=== PATIENT | female | born 1955 | race Caucasian/White ===

== ENCOUNTER → 2017-10-23 12:05 | Outpatient (CLI) | payer OTHER, SELFPAY ==
[2017-10-23 12:31] LABS: Absolute Lymphocyte Count 1.91 X10^3/ul (0.83-4.51); Absolute Neutrophil Count 3.4 X10^3/uL (2.0-7.7); Basophil# 0.04 X10^3/uL; Basophil% 0.7 % (0-1); Eosinophil# 0.14 X10^3/uL; Eosinophils% 2.3 % (0-5); Hematocrit 40.4 % (37-47); Hemoglobin 13.1 g/dl (12.0-15.0); Lymphocyte # 1.91 X10^3/ul (4.0); Lymphocyte % 31.4 % (19-41); Mean Corp Hgb Conc 32.4 g/gl (32-36); Mean Corpuscular Hgb 30.5 pg (27.0-32.0); Mean Corpuscular Volume 94.2 fL (81-99); Mean Platelet Vol. 11.5 fl (6.2-12.0); Monocyte# 0.56 X10^3/uL; Monocyte% 9.2 % (0-10); Neutrophil # 3.41 X10^3/uL (2.7-7.7); Neutrophil % 56.1 % (47-70); Platelet Count 191 K/mm3 (150-450); RBC Distribution Width CV 13.4 % (11.6-14.6); RBC Distribution Width SD 44.2 fl (35.1-43.9); Red Blood Count 4.29 M/mm3 (4.2-5.4); White Blood Count 6.1 K/mm3 (4.4-11.0)
[2017-10-23 12:37] LABS: POSITIVE COUNT NO; POSITIVE DIFFERENTIAL NO; POSITIVE MORPHOLOGY NO
[2017-10-23 12:52] LABS: AST(SGOT) 27 U/L (15-37); Alanine Aminotransfer ALT/SGPT 46 U/L (13-56); Albumin, Serum 3.7 g/dL (3.2-5.0); Alkaline Phosphatase 50 U/L (45-117); Anion Gap 10 (5-15); BUN 15 mg/dL (7-18); BUN/Creat Ratio 16.1 RATIO (10-20); Calcium,Total 8.8 mg/dL (8.5-10.1); Chloride 102 mmol/L (98-107); Creatinine, Serum 0.93 mg/dL (0.55-1.02); EST Glomerular Filtration Rate 65 mL/min (>60); Est Glom Filt Rate - Afr Amer 78 mL/min (>60); Globulin 3.7 g/dL (2.2-4.2); Glucose 94 mg/dL (74-106); Potassium 4.1 mmol/L (3.5-5.1); Protein, Total 7.4 g/dL (6.4-8.2); Sodium Level 139 mmol/L (136-145); Thyroid Stim Hormone (TSH) 5.79 uIU/mL (0.358-3.74)
== END ==
PROVIDERS: Family Provider Family Medicine Geriatric Medicine; Visit Provider Family Medicine Geriatric Medicine
DX: I10 Essential (primary) hypertension (principal)
CPT/HCPCS: 36415; 80053; 84443; 85025

== ENCOUNTER → 2018-02-09 11:08 | Outpatient (CLI) | payer OTHER, SELFPAY ==
[2018-02-09 15:03] LABS: Absolute Lymphocyte Count 1.29 X10^3/ul (0.83-4.51); Absolute Neutrophil Count 3.7 X10^3/uL (2.0-7.7); Basophil# 0.05 X10^3/uL; Basophil% 0.9 % (0-1); Eosinophil# 0.18 X10^3/uL; Eosinophils% 3.2 % (0-5); Hemoglobin 12.4 g/dl (12.0-15.0); Lymphocyte # 1.29 X10^3/ul (4.0); Lymphocyte % 23.2 % (19-41); Mean Corp Hgb Conc 31.8 g/gl (32-36); Mean Corpuscular Hgb 30.2 pg (27.0-32.0); Mean Corpuscular Volume 95.1 fL (81-99); Mean Platelet Vol. 10.6 fl (6.2-12.0); Monocyte% 7.2 % (0-10); Neutrophil # 3.65 X10^3/uL (2.7-7.7); Neutrophil % 65.5 % (47-70); Platelet Count 214 K/mm3 (150-450); RBC Distribution Width SD 45.2 fl (35.1-43.9); White Blood Count 5.6 K/mm3 (4.4-11.0)
[2018-02-09 15:07] LABS: POSITIVE COUNT NO; POSITIVE DIFFERENTIAL NO; POSITIVE MORPHOLOGY NO
[2018-02-09 15:26] LABS: Vitamin D,25 Hydroxy 20.9 ng/mL (29.95-100.01)
[2018-02-09 15:36] LABS: ALB/GLOB Ratio 1.1 RATIO (0.9-2.4); AST(SGOT) 29 U/L (15-37); Alanine Aminotransfer ALT/SGPT 48 U/L (13-56); Albumin, Serum 3.7 g/dL (3.2-5.0); Alkaline Phosphatase 54 U/L (45-117); Anion Gap 9 (5-15); BUN 19 mg/dL (7-18); BUN/Creat Ratio 18.4 RATIO (10-20); Calcium,Total 8.9 mg/dL (8.5-10.1); Chloride 106 mmol/L (98-107); Creatinine, Serum 1.03 mg/dL (0.55-1.02); EST Glomerular Filtration Rate 58 mL/min (>60); Est Glom Filt Rate - Afr Amer 70 mL/min (>60); Globulin 3.5 g/dL (2.2-4.2); Glucose 102 mg/dL (74-106); Protein, Total 7.2 g/dL (6.4-8.2); Sodium Level 139 mmol/L (136-145); T4 Free Direct 0.99 ng/dL (0.76-1.46); Thyroid Stim Hormone (TSH) 5.75 uIU/mL (0.358-3.74)
--- OUTSIDE RECORDS SUMMARY | 2018-05-14 00:27 | XMS RPT_ITS ---
:1955 Author Organization [place] Care Team Providers Name Role Phone Corine Kong Admitting Unavailable Corine Kong Attending Unavailable Corine Kong Admitting Unavailable Corine Kong Attending Unavailable CORINE KONG Attending Unavailable JD, [facility] Unavailable JD, [facility] Unavailable WAI GAMBLE Attending Unavailable JD, [facility] Unavailable NOE FERMIN Attending Unavailable JD, [facility] Unavailable CORINE KONG Attending Unavailable JD, [facility] Unavailable Jd, Orlando Chi Attending Unavailable Jd, [facility] Primary Care Unavailable Jd, Orlando Chi Attending Unavailable Jd, Orlando [facility] Primary Care Unavailable PROBLEMS PROBLEMS DATE TYPE CONDITION / CODE ATTENDING STATUS SOURCE 02/09/2018 Unknown E03.9 - Jd, [place] Chi Active [place] Hypothyroidism, [facility] unspecified / Hospital E03.9(ICD-10) Repository 01/29/2018 Admitting Other senior living [facility] diagnosis (current) drug LEATHAJennifer Metzger therapy / Repository Z79.899(ICD-10) 10/24/2017 Unknown I10 - Essential Jd, Orlando Chi Active [place] (primary) [facility] hypertension / Hospital I10(ICD-10) Repository 06/26/2017 Admitting Paroxysmal atrial NA [facility] diagnosis fibrillation / Three I48.0(ICD-10) Repository 10/17/2016 Admitting Essential GORENFLOCORINE [facility] diagnosis (primary) L. [place] hypertension / Repository I10(ICD-10) 06/18/2017 Admitting Unspecified atrial GORENFLOCORINE [facility] diagnosis fibrillation / L. Three I48.91(ICD-10) Repository PROCEDURES PROCEDURES No Procedure Records FoundRESULTS RESULTS CBC W/DIFF, AUTOMATED Collected: 02/09/2018 Status: F Source: [place] 12:19 PM [facility] REPOSITORY Order Comment: WAI GAMBLE ORDERED CMP TSH FT4 ONLY TYPE CODE TESTS RESULT OUT OF RANGE REFERENCE UNITS LAB L100.1000 4.4-11.0 K/mm3 Normal WBC 5.6 LAB L100.1200 4.2-5.4 M/mm3 Low RBC 4.10 LAB L100.1300 12.0-15.0 g/dl Normal HGB 12.4 LAB L100.1400 37-47 % Normal HCT 39.0 LAB L100.1500 81-99 fL Normal MCV 95.1 LAB L100.1600 27.0-32.0 pg Normal MCH 30.2 LAB L100.1700 32-36 g/gl Low MCHC 31.8 LAB L100.1810 11.6-14.6 % Normal RDW CV 13.0 LAB L100.1820 35.1-43.9 fl High RDW SD 45.2 LAB L100.1900 150-450 K/mm3 Normal PLT 214 LAB L100.2000 6.2-12.0 fl Normal MPV 10.6 LAB L100.2100 47-70 % Normal NEUT% 65.5 LAB L100.2200 19-41 % Normal LY% 23.2 LAB L100.2300 0-10 % Normal MONO% 7.2 LAB L100.2400 0-5 % Normal EO% 3.2 LAB L100.2500 0-1 % Normal BASO% 0.9 LAB L100.2550 0.0-0.9 % Normal IM GRAN % 0.000 Result Comment: IG% - Immature Granulocytes (promyelocytes, myelocytes and metamyelocytes) > 1% indicates that a LEFT SHIFT is Present. LAB L100.2620 2.0-7.7 X10 3/uL Normal Absolute Neut 3.7 LAB L100.2720 0.83-4.51 X10 3/ul Normal Absolute Lymph 1.29 Performed By: #### L100.0100 #### [facility] [address] [place], [place], [address] VITAMIN D,25 HYDROXY Collected: 02/09/2018 Status: F Source: [place] 12:[address] [facility] REPOSITORY Order Comment: WAI ZHANG COX BRANSON ORDERED CMP TSH FT4 ONLY TYPE CODE TESTS RESULT OUT OF REFERENCE UNITS RANGE LAB L506.1000 29.95-100.01 ng/mL Low Vitamin D 20.9 25-OH Result Comment: Vitamin D 25(OH) Status Range Deficiency <20 ng/mL (50nmol/L) Insuffciency 20 - 30 ng/mL (50 - 75 nmol/L) Sufficiency 30 - 100 ng/mL (75 - 250 nmol/L) Toxicity >100 ng/mL (>250 nmol/L) Performed By: #### L506.1000 #### [facility] [address] [place], [place], [address] COMPREHENSIVE METABOLIC Collected: 02/09/2018 Status: F Source: [facility] 12:[address] [facility] REPOSITORY Order Comment: WAI YEUNGE [facility] ORDERED CMP TSH FT4 ONLY TYPE CODE TESTS RESULT OUT OF RANGE REFERENCE UNITS LAB L501.0100 74-106 mg/dL Normal GLU 102 Result Comment: Fasting Glucose result from 100 to 125 mg/dL suggests IMPAIRED HOMEOSTASIS per A.D.A. criteria. Please note revised GLUCOSE reference range effective 2017. LAB L501.1000 7-18 mg/dL High BUN 19 LAB L501.1100 0.55-1.02 mg/dL High CREAT,SERUM 1.03 Result Comment: The validity of the calculated GFR AND GFRAA in patients over 70 years has not been determined. Clinical correlation is essential. LAB L501.1110 >60 mL/min Low EST GFR 58 Result Comment: Non- GFR Calc LAB L501.1115 >60 mL/min Normal EST GFR - AA 70 Result Comment: GFR Calc LAB L501.1300 10-20 RATIO Normal BUN/CRE 18.4 LAB L501.1500 6.4-8.2 g/dL T Normal PROT 7.2 LAB L501.1800 3.2-5.0 g/dL Normal ALB 3.7 LAB L501.1950 2.2-4.2 g/dL Normal GLOB 3.5 LAB L501.2000 0.9-2.4 RATIO Normal A/G 1.1 LAB L501.2200 8.5-10.1 mg/dL CA Normal 8.9 LAB L501.4100 15-37 U/L Normal AST 29 LAB L501.4305 45-117 U/L Normal ALK P 54 LAB L501.4405 13-56 U/L Normal ALT 48 LAB L501.4600 0.20-1.00 mg/dL T Normal BILI 0.40 LAB L501.5300 136-145 mmol/L NA Normal 139 LAB L501.5600 3.5-5.1 mmol/L K Normal 4.0 LAB L501.5900 98-107 mmol/L CL Normal 106 LAB L501.6100 21.0-32.0 mmol/L Normal CO2 24.0 LAB L501.6200 5-15 Normal GAP 9 Performed By: #### L500.4050, L501.9520, L506.0400 #### [facility] [address] [place], [address] THYROID STIM HORMONE Collected: 02/09/2018 Status: F Source: [place] (TSH) 12:[address] [facility] REPOSITORY Order Comment: WAI GAMBLE ORDERED CMP TSH FT4 ONLY TYPE CODE TESTS RESULT OUT OF RANGE REFERENCE UNITS LAB L501.9520 0.358-3.74 uIU/mL High TSH 5.75 Performed By: #### L500.4050, L501.9520, L506.0400 #### [facility] [address] [place], [place], [address] T4 FREE DIRECT Collected: 02/09/2018 Status: F Source: [place] 12:[address] [facility] REPOSITORY Order Comment: WAI GAMBLE ORDERED CMP TSH FT4 ONLY TYPE CODE TESTS RESULT OUT OF RANGE REFERENCE UNITS LAB L506.0400 0.76-1.46 ng/dL Normal T4 FREE 0.99 DIRECT Performed By: #### L500.4050, L501.9520, L506.0400 #### [facility] [address] [place], [place], [address] CBC W/DIFF, AUTOMATED Collected: 10/23/2017 Status: F Source: [place] 12:[address] [facility] REPOSITORY TYPE CODE TESTS RESULT OUT OF RANGE REFERENCE UNITS LAB L100.1000 4.4-11.0 K/mm3 Normal WBC 6.1 LAB L100.1200 4.2-5.4 M/mm3 Normal RBC 4.29 LAB L100.1300 12.0-15.0 g/dl Normal HGB 13.1 LAB L100.1400 37-47 % Normal HCT 40.4 LAB L100.1500 81-99 fL Normal MCV 94.2 LAB L100.1600 27.0-32.0 pg Normal MCH 30.5 LAB L100.1700 32-36 g/gl Normal MCHC 32.4 LAB L100.1810 11.6-14.6 % Normal RDW CV 13.4 LAB L100.1820 35.1-43.9 fl High RDW SD 44.2 LAB L100.1900 150-450 K/mm3 Normal PLT 191 LAB L100.2000 6.2-12.0 fl Normal MPV 11.5 LAB L100.2100 47-70 % Normal NEUT% 56.1 LAB L100.2200 19-41 % Normal LY% 31.4 LAB L100.2300 0-10 % Normal MONO% 9.2 LAB L100.2400 0-5 % Normal EO% 2.3 LAB L100.2500 0-1 % Normal BASO% 0.7 LAB L100.2550 0.0-0.9 % Normal IM GRAN % 0.300 Result Comment: IG% - Immature Granulocytes (promyelocytes, myelocytes and metamyelocytes) > 1% indicates that a LEFT SHIFT is Present. LAB L100.2620 2.0-7.7 X10 3/uL Normal Absolute Neut 3.4 LAB L100.2720 0.83-4.51 X10 3/ul Normal Absolute Lymph 1.91 Performed By: #### L100.0100 #### [facility] [address] [place], [place], [address] COMPREHENSIVE METABOLIC Collected: 10/23/2017 Status: F Source: [facility] 12:[address] [facility] REPOSITORY TYPE CODE TESTS RESULT OUT OF RANGE REFERENCE UNITS LAB L501.0100 74-106 mg/dL Normal GLU 94 Result Comment: Please note revised GLUCOSE reference range effective 2017. LAB L501.1000 7-18 mg/dL Normal BUN 15 LAB L501.1100 0.55-1.02 mg/dL Normal CREAT,SERUM 0.93 Result Comment: The validity of the calculated GFR AND GFRAA in patients over 70 years has not been determined. Clinical correlation is essential. LAB L501.1110 >60 mL/min Normal EST GFR 65 Result Comment: Non- GFR Calc LAB L501.1115 >60 mL/min Normal EST GFR - AA 78 Result Comment: GFR Calc LAB L501.1300 10-20 RATIO Normal BUN/CRE 16.1 LAB L501.1500 6.4-8.2 g/dL T Normal PROT 7.4 LAB L501.1800 3.2-5.0 g/dL Normal ALB 3.7 LAB L501.1950 2.2-4.2 g/dL Normal GLOB 3.7 LAB L501.2000 0.9-2.4 RATIO Normal A/G 1.0 LAB L501.2200 8.5-10.1 mg/dL CA Normal 8.8 LAB L501.4100 15-37 U/L Normal AST 27 LAB L501.4305 45-117 U/L Normal ALK P 50 LAB L501.4405 13-56 U/L Normal ALT 46 LAB L501.4600 0.20-1.00 mg/dL T Normal BILI 0.50 LAB L501.5300 136-145 mmol/L NA Normal 139 LAB L501.5600 3.5-5.1 mmol/L K Normal 4.1 LAB L501.5900 98-107 mmol/L CL Normal 102 LAB L501.6100 21.0-32.0 mmol/L Normal CO2 27.0 LAB L501.6200 5-15 Normal GAP 10 Performed By: #### L500.4050, L501.9520 #### [facility] [address] [place], [address] THYROID STIM HORMONE Collected: 10/23/2017 Status: F Source: [place] (TSH) 12:[address] [facility] REPOSITORY TYPE CODE TESTS RESULT OUT OF RANGE REFERENCE UNITS LAB L501.9520 0.358-3.74 uIU/mL High TSH 5.79 Performed By: #### L500.4050, L501.9520 #### [facility] [address] [place], [address] CHEST PA AND LATERAL Observed: 06/18/2017 Status: F Source: [facility] 2:27 PM [facility] Final Report Accession No: [id number] Performed: Jun 18 2017 2:27PM Examination: CHEST PA AND LATERAL PA AND LATERAL CHEST CLINICAL HISTORY: Amiodarone use. COMPARISON: Chest x-ray 09/07/2016. FINDINGS: Two views are submitted. The lungs and pleural spaces are clear. Pulmonary vascular markings are normal. The cardiomediastinal silhouette is stable, slightly enlarged. Lung volumes are normal. No bony lesions are shown. IMPRESSION: 1. No acute cardiopulmonary abnormality. 2. Stable, normal lung volumes. Interpreting Physician: BEN BARTON M.D. Trans: mh : cc: ALT (SGPT) Collected: 06/18/2017 Status: F Source: [facility] 2:10 PM [facility] TYPE CODE TESTS RESULT OUT OF RANGE REFERENCE UNITS LAB ALT 14-65 U/L Normal ALT 35 (SGPT) Result Comment: This test result might be falsely depressed or falsely elevated on samples drawn from patients taking Sulfasalazine and Sulfapyridine. Venipuncture should occur prior to taking either of these drugs. Performed By: #### TSH, AST, ALT #### Unless otherwise noted, all testing performed by [place] [address] CLIA: [id number] [employer] Operator: Rahul Hastings M.D. AST (SGOT) Collected: 06/18/2017 Status: F Source: [facility] 2:10 PM [facility] REPOSITORY TYPE CODE TESTS RESULT OUT OF RANGE REFERENCE UNITS LAB AST 0-45 U/L Normal AST 20 (SGOT) Result Comment: This test result might be falsely depressed or falsely elevated on samples drawn from patients taking Sulfasalazine and Sulfapyridine. Venipuncture should occur prior to taking either of these drugs. Performed By: #### TSH, AST, ALT #### Unless otherwise noted, all testing performed by [place] [address] CLIA: [id number] [employer] Operator: Rahul Hastings M.D. TSH Collected: 06/18/2017 Status: F Source: [facility] 2:10 PM [facility] REPOSITORY TYPE CODE TESTS RESULT OUT OF RANGE REFERENCE UNITS LAB TSH 0.320-5.000 uIU/mL Normal TSH 3.53 Result Comment: Samples from patients routinely receiving high dose biotin therapy (100-300 mg/day) may show falsely decreased results. Please correlate clinically. Performed By: #### TSH, AST, ALT #### Unless otherwise noted, all testing performed by [place] [address] CLIA: [id number] [employer] Operator: Rahul Hastings M.D. ALLERGIES ALLERGIES DATE TYPE / CODE NAME / CODE REACTION SEVERITY SOURCE 10/17/2016 Drug SULFA [facility] Class/256794 (SULFONAMIDE Repository 003(SNOMED ANTIBIOTICS) CT) ENCOUNTERS ENCOUNTERS ADMIT/DISCHARGE ACCOUNT NUMBER ADMITTING ENCOUNTER LOCATION SOURCE CLASS 02/09/2018 [id number] Ambulatory [facility] ding:LAB.FUT Repository URE 02/05/2018 [id number] Ambulatory Building:[facility] [address] Repository 02/04/2018 [id number] Ambulatory Building:[facility] [address] Repository 01/29/2018/02/03/20 [id number] Ambulatory Building:[address] Repository 10/23/2017 [id number] Ambulatory [facility] ding:POLAB3 Repository 06/26/2017 [id number] [facility], Ambulatory [facility] Repository 06/26/2017/06/27/19 [id number] Ambulatory Building:[place] [address] [address] Repository 06/18/2017 [id number] [facility] Ambulatory [facility] Repository 06/18/2017/06/19/19 [id number] Ambulatory Building:[address] Repository PAYERS PAYERS ENCOUNTER GUARANTOR PAYER SUBSCRIBER SOURCE 02/09/2018 Yordy Cano Primary Yordy VarmaB: [place] Insurance:MEDICAL [id number] [address]Wvi: (330) Number: Repository [phone] () [id number] Date:[id number] [phone]: 02/09/2018 Secondary NOT GIVENUNK [place] Insurance:SELF PAY [facility] Number: Effective Repository Date:2018-01-01 02/05/2018 YORDY VARMAB: Primary YORDY VARMAB: [facility] [id number] Insurance:[facility] [id number] Three [facility] Number: [place], [place] [id number] [place] [id number]: ([phone]) Date:2016-02-25 [place] [address]Pgo: [phone] (HP) [id number] [address] [place] [address] (HP) [phone]: 02/05/2018 Secondary YORDY Morrison ORRDOB: [facility] Insurance:MARKET [id number] [address] EXCHANGEPolicy [address] [place] Number: [place] [id number]: (419) Date:5958-85-62JP [phone] (HP) [address] [place] [phone]: 02/04/2018 YORDY Morrison ORRDOB: Primary YORDY Morrison ORRDOB: [facility] Insurance:[facility] [id number] Three Repository [place] Number: [facility] [place] [id number] [facility] [address]Hid: ([phone]) Date:2016-02-25 [place] [address]Azw: [phone] (HP) [id number] [address] [place] [address] (HP) [phone]: 02/04/2018 Secondary YORDY Morrison ORRDOB: [facility] Insurance:[facility] [id number] [address] EXCHANGEPolicy 3 [place] Number: [place] [id number]: (419) Date:6159-33-94TY [phone] (HP) [address] [place] [phone]: 01/29/2018 YORDY Morrison ORRDOB: Primary YORDY Morrison ORRDOB: [facility] Insurance:[facility] [id number] [address]ository [address] EXCHANGEPolicy 3 [place] [facility] [place] Number: [place] [id number]: [phone]) [id number] [id number]: (HP) Date:2008-90-10TA [phone] (HP) [address], [place] [address]NH: 01/29/2018 Secondary YORDY K ORRDOB: [facility] Insurance:MARKET [id number] Three Repository [address] Number: TYSON JOSEPH [id number]: ([phone]) Date:0830-25-77KF [phone] (HP) [address], [place] [address]FF: 10/23/2017 Yordy Han65 Primary Yordy K OrrDOB: [place] [facility] Insurance:MEDICAL [id number] [facility] [address]Njc: (330) Number: Repository [phone] () [id number] Date:7750-12-41TK [address] [place] [phone]: 10/23/2017 Secondary NOT GIVENUNK [place] Insurance:SELF PAY [facility] Number: Effective Repository Date:2017-10-23 06/26/2017 Primary YORDY K ORRDOB: [facility] Insurance:Medical [id number] [address] Number: TYSON JOSEPH Repository [id number]: ([phone]) Date:Plan Name:Health [phone] () 06/26/2017 YORDY K ORRDOB: Primary YORDY K ORRDOB: [facility] Insurance:[facility] [id number] Three Repository [facility] Number: [facility], [id number] [place], [place] [address]Qae: Date:0994-00-66[place] [address] [place] [address]Jsk: [address] [place] [address] (HP) [phone]: [phone] 06/18/2017 Primary YORDY VARMAB: [facility] Insurance:Medical [id number] [facility] Number: [place] Repository [id number]: ([phone]) Date:Plan Name:[address] () 06/18/2017 YORDY VARMAB: Primary YORDY VARMAB: [facility] Insurance:[facility] [id number] [facility] Number: [facility], [id number] [place], [place] [address]Yid: Date:6883-46-63OB [address] [place] [address]Sbf: [address], [place] () [phone]: [phone]
== END ==
PROVIDERS: Family Provider Family Medicine Geriatric Medicine; Visit Provider Family Medicine Geriatric Medicine
DX: E03.9 Hypothyroidism, unspecified (principal); I10 Essential (primary) hypertension; I48.0 Paroxysmal atrial fibrillation; E55.9 Vitamin D deficiency, unspecified
CPT/HCPCS: 80053; 82306; 84439; 84443; 85025

== ENCOUNTER → 2018-07-09 15:35 | Outpatient (CLI) | payer OTHER, SELFPAY ==
[2018-07-09 14:36] VITALS: BMI 39.4
--- NOTE | 2018-07-09 15:45 | RAD_ITS ---
STUDY: X-RAY CHEST REASON FOR EXAM: Female, 62 years old. Shortness of breath. TECHNIQUE: PA and lateral views of the chest. COMPARISON: None. FINDINGS: There are few left basilar streaky opacities. Normal size heart. Normal mediastinum and darinel. Normal visualized pulmonary arteries. There is atherosclerotic calcification of the aortic arch with tortuosity. Normal visualized thoracic spine. Normal visualized ribs, clavicles, and shoulders. There is no demonstrated abnormality of the visualized soft tissue structures of the upper abdomen. RAD/Chest PA and Lateral IMPRESSION: Minimal left basilar atelectasis and/or scarring. Electronically Signed: Paula Adorno MD at 16:04 EDT Tel , Service support ,
== END ==
PROVIDERS: Family Provider Family Medicine Geriatric Medicine; PCP Family Medicine Geriatric Medicine; Referring Provider Internal Medicine Cardiovascular Disease; Visit Provider Internal Medicine Cardiovascular Disease
DX: I48.0 Paroxysmal atrial fibrillation (principal); G47.33 Obstructive sleep apnea (adult) (pediatric); Z79.899 Other long term (current) drug therapy; Z99.89 Dependence on other enabling machines and devices
CPT/HCPCS: 71046

== ENCOUNTER → 2018-07-30 07:13 | Outpatient (CLI) | payer OTHER, SELFPAY ==
[2018-07-09 14:36] VITALS: BMI 39.4
[2018-07-23 10:07] VITALS: BMI 40.1
--- NOTE | 2018-07-30 13:25 | PFT ---
INTRODUCTION: The patient is a 62-year-old female that presents for pulmonary function studies secondary to a diagnosis of high risk medication use. Respiratory therapy reports good patient effort. Bronchodilators were used during testing. INTERPRETATION: Forced expiration spirometry demonstrates no evidence of a large airways obstructive ventilatory defect. There was no significant response to aerosolized bronchodilators, based upon strict ATS criteria. Spirograms are of good quality and plateau normally. Body plethysmography was performed and reveals lung volumes to be within normal limits. Diffusing capacity by single breath CO is moderately reduced at 59% of predicted. IMPRESSION: Isolated moderate reduction in diffusing capacity, which could be related to an underlying pulmonary vascular disorder such as pulmonary hypertension.
== END ==
PROVIDERS: Family Provider Family Medicine Geriatric Medicine; PCP Family Medicine Geriatric Medicine; Referring Provider Internal Medicine Cardiovascular Disease; Visit Provider Internal Medicine Cardiovascular Disease
DX: I48.0 Paroxysmal atrial fibrillation (principal); G47.33 Obstructive sleep apnea (adult) (pediatric); Z99.89 Dependence on other enabling machines and devices; Z79.899 Other long term (current) drug therapy
CPT/HCPCS: 94060; 94726; 94729

== ENCOUNTER → 2018-08-10 13:04 | Outpatient (CLI) | payer OTHER, SELFPAY ==
[2018-07-23 10:07] VITALS: BMI 40.1
[2018-08-10 17:35] LABS: Absolute Lymphocyte Count 1.63 X10^3/ul (0.83-4.51); Absolute Neutrophil Count 3.9 X10^3/uL (2.0-7.7); Basophil# 0.04 X10^3/uL; Basophil% 0.6 % (0-1); Eosinophil# 0.15 X10^3/uL; Eosinophils% 2.4 % (0-5); Hematocrit 40.2 % (37-47); Hemoglobin 13.2 g/dl (12.0-15.0); Lymphocyte # 1.63 X10^3/ul (4.0); Mean Corp Hgb Conc 32.8 g/gl (32-36); Mean Corpuscular Volume 91.4 fL (81-99); Mean Platelet Vol. 11.4 fl (6.2-12.0); Monocyte# 0.51 X10^3/uL; Monocyte% 8.1 % (0-10); Neutrophil # 3.92 X10^3/uL (2.7-7.7); Neutrophil % 62.7 % (47-70); Platelet Count 255 K/mm3 (150-450); RBC Distribution Width CV 13.7 % (11.6-14.6); RBC Distribution Width SD 44.9 fl (35.1-43.9); White Blood Count 6.3 K/mm3 (4.4-11.0)
[2018-08-10 17:58] LABS: POSITIVE COUNT NO; POSITIVE DIFFERENTIAL NO; POSITIVE MORPHOLOGY NO
[2018-08-10 18:09] LABS: AST(SGOT) 28 U/L (15-37); Alanine Aminotransfer ALT/SGPT 49 U/L (13-56); Albumin, Serum 3.6 g/dL (3.2-5.0); Alkaline Phosphatase 58 U/L (45-117); Anion Gap 11 (5-15); BUN 20 mg/dL (7-18); BUN/Creat Ratio 20.3 RATIO (10-20); Calcium,Total 8.8 mg/dL (8.5-10.1); Chloride 102 mmol/L (98-107); Creatinine, Serum 0.98 mg/dL (0.55-1.02); EST Glomerular Filtration Rate 61 mL/min (>60); Est Glom Filt Rate - Afr Amer 74 mL/min (>60); Globulin 3.6 g/dL (2.2-4.2); Glucose 83 mg/dL (74-106); Potassium 4.8 mmol/L (3.5-5.1); Protein, Total 7.2 g/dL (6.4-8.2); Sodium Level 138 mmol/L (136-145); Thyroid Stim Hormone (TSH) 2.26 uIU/mL (0.358-3.74)
== END ==
PROVIDERS: Family Provider Family Medicine Geriatric Medicine; PCP Family Medicine Geriatric Medicine; Visit Provider Family Medicine Geriatric Medicine
DX: I10 Essential (primary) hypertension (principal)
CPT/HCPCS: 36415; 80053; 84443; 85025

== ENCOUNTER → 2018-12-14 11:40 | Outpatient (CLI) | payer OTHER, SELFPAY ==
[2018-12-14 07:56] VITALS: BMI 39.8
[2018-12-14 12:34] LABS: Rheumatoid Factor < 10.0 IU/mL (<15)
[2018-12-15 15:04] LABS: ANTINUCLEAR ANTIBODIES DIRECT Positive (Negative); Anti-Centromere B Ab <0.2 AI (0.0-0.9); Anti-Chromatin <0.2 AI (0.0-0.9); Anti-Jo <0.2 AI (0.0-0.9); Anti-Scleroderma-70 AB <0.2 AI (0.0-0.9); RNP Ab <0.2 AI (0.0-0.9); SJOGREN'S Anti-SS-A test < 0.2 AI (0.0-0.9); SJOGREN'S Anti-SS-B test 4.2 AI (0.0-0.9); Smith Ab <0.2 AI (0.0-0.9)
[2018-12-15 15:08] LABS: Anti-dsDNA Ab <1 IU/mL (0-9)
[2018-12-17 03:06] LABS: Cytoplasmic Ab (C-ANCA) <1:20 titer (Neg:<1:20)
[2018-12-17 11:40] LABS: Perinuclear Ab (P-ANCA) <1:20 titer (Neg:<1:20)
[2018-12-17 11:41] LABS: CCP IgG Antibodies 10 units (0-19)
== END ==
PROVIDERS: Family Provider Family Medicine Geriatric Medicine; PCP Family Medicine Geriatric Medicine; Referring Provider Nurse Practitioner Acute Care; Visit Provider Nurse Practitioner Acute Care
DX: I27.20 Pulmonary hypertension, unspecified (principal)
CPT/HCPCS: 36415; 86038; 86200; 86225; 86235; 86256; 86431

== ENCOUNTER → 2019-02-23 12:01 | Outpatient (CLI) | payer OTHER, SELFPAY ==
[2019-01-06 13:49] VITALS: BMI 39.9
[2019-02-23 12:43] LABS: Absolute Lymphocyte Count 1.53 X10^3/uL (0.83-4.51); Absolute Neutrophil Count 3.3 X10^3/uL (2.0-7.7); Basophil# 0.04 X10^3/uL; Basophil% 0.7 % (0-1); Eosinophil# 0.17 X10^3/uL; Eosinophils% 3.1 % (0-5); Hematocrit 40.7 % (37-47); Hemoglobin 13.1 g/dL (12.0-15.0); Lymphocyte # 1.53 X10^3/ul (4.0); Mean Corp Hgb Conc 32.2 g/dL (32-36); Mean Corpuscular Hgb 30.3 pg (27.0-32.0); Mean Corpuscular Volume 94.2 fL (81-99); Mean Platelet Vol. 10.9 fl (6.2-12.0); Monocyte# 0.46 X10^3/uL; Monocyte% 8.4 % (0-10); NRBC Flagged by Analyzer 0 % (0-5); Neutrophil # 3.26 X10^3/uL (2.7-7.7); Neutrophil % 59.6 % (47-70); Platelet Count 206 K/mm3 (150-450); RBC Distribution Width CV 12.5 % (11.6-14.6); RBC Distribution Width SD 43.5 fl (35.1-43.9); Red Blood Count 4.32 M/mm3 (4.2-5.4); White Blood Count 5.5 K/mm3 (4.4-11.0)
[2019-02-23 13:03] LABS: AST(SGOT) 36 U/L (15-37); Alanine Aminotransfer ALT/SGPT 58 U/L (13-56); Albumin, Serum 3.7 g/dL (3.2-5.0); Alkaline Phosphatase 52 U/L (45-117); Anion Gap 6 (5-15); BUN 18 mg/dL (7-18); Calcium,Total 8.5 mg/dL (8.5-10.1); Chloride 106 mmol/L (98-107); Creatinine, Serum 1.06 mg/dL (0.55-1.02); EST Glomerular Filtration Rate 56 mL/min (>60); Est Glom Filt Rate - Afr Amer 67 mL/min (>60); Globulin 3.7 g/dL (2.2-4.2); Glucose 96 mg/dL (74-106); Potassium 4.3 mmol/L (3.5-5.1); Protein, Total 7.4 g/dL (6.4-8.2); Sodium Level 139 mmol/L (136-145); Thyroid Stim Hormone (TSH) 2.81 uIU/mL (0.358-3.74); Vitamin D,25 Hydroxy 28.3 ng/mL (29.95-100.01)
== END ==
PROVIDERS: Family Provider Family Medicine Geriatric Medicine; PCP Family Medicine Geriatric Medicine; Visit Provider Family Medicine Geriatric Medicine
DX: E55.9 Vitamin D deficiency, unspecified (principal); I10 Essential (primary) hypertension
CPT/HCPCS: 36415; 80053; 82306; 84443; 85025

== ENCOUNTER → 2019-09-21 15:01 | Outpatient (CLI) | payer OTHER, SELFPAY ==
[2019-06-14 07:54] VITALS: BMI 39.9
[2019-09-13 12:53] VITALS: BMI 40.6
[2019-09-21 15:44] LABS: Absolute Lymphocyte Count 2.22 X10^3/uL (0.83-4.51); Absolute Neutrophil Count 5.9 X10^3/uL (2.0-7.7); Basophil# 0.07 X10^3/uL; Basophil% 0.8 % (0-1); Eosinophil# 0.21 X10^3/uL; Eosinophils% 2.3 % (0-5); Hematocrit 42.9 % (37-47); Hemoglobin 13.9 g/dL (12.0-15.0); Lymphocyte # 2.22 X10^3/ul (4.0); Mean Corp Hgb Conc 32.4 g/dL (32-36); Mean Corpuscular Hgb 31.1 pg (27.0-32.0); Mean Platelet Vol. 12.2 fl (6.2-12.0); Monocyte# 0.82 X10^3/uL; Monocyte% 8.9 % (0-10); NRBC Flagged by Analyzer 0.6 % (0-5); Neutrophil # 5.91 X10^3/uL (2.7-7.7); Neutrophil % 63.7 % (47-70); Platelet Count 234 K/mm3 (150-450); RBC Distribution Width CV 12.9 % (11.6-14.6); RBC Distribution Width SD 44.7 fl (35.1-43.9); Red Blood Count 4.47 M/mm3 (4.2-5.4); White Blood Count 9.3 K/mm3 (4.4-11.0)
[2019-09-21 16:17] LABS: Vitamin D,25 Hydroxy 24.7 ng/mL
[2019-09-21 16:23] LABS: AST(SGOT) 55 U/L (15-37); Alanine Aminotransfer ALT/SGPT 61 U/L (13-56); Albumin, Serum 3.8 g/dL (3.2-5.0); Alkaline Phosphatase 57 U/L (45-117); Anion Gap 6 (5-15); BUN 21 mg/dL (7-18); BUN/Creat Ratio 21.3 RATIO (10-20); Bilirubin, Direct 0.08 mg/dL (0.00-0.30); Calcium,Total 8.8 mg/dL (8.5-10.1); Chloride 108 mmol/L (98-107); Creatinine, Serum 0.99 mg/dL (0.55-1.02); EST Glomerular Filtration Rate 60 mL/min (>60); Est Glom Filt Rate - Afr Amer 73 mL/min (>60); Glucose 103 mg/dL (74-106); Potassium 4.3 mmol/L (3.5-5.1); Protein, Total 7.8 g/dL (6.4-8.2); Sodium Level 137 mmol/L (136-145); T4 Free Direct 1.19 ng/dL (0.76-1.46); Thyroid Stim Hormone (TSH) 2.68 uIU/mL (0.358-3.74)
== END ==
PROVIDERS: PCP Family Medicine Geriatric Medicine; Visit Provider Family Medicine Geriatric Medicine
DX: I10 Essential (primary) hypertension (principal); E55.9 Vitamin D deficiency, unspecified
CPT/HCPCS: 36415; 80048; 80076; 82306; 84439; 84443; 85025

== ENCOUNTER 2019-11-23 08:14 | Outpatient (RCR) | payer OTHER, SELFPAY ==
[2019-09-13 12:53] VITALS: BMI 40.6
[2019-11-23 09:57] LABS: International Normalized Ratio 1.8; Prothrombin Time (Protime)PT. 20.8 SECONDS (11.7-14.9)
== END 2019-11-23 18:00 | disposition home or self-care (01) ==
LOC: LAB 08:14
PROVIDERS: PCP Family Medicine Geriatric Medicine; Referring Provider Internal Medicine Cardiovascular Disease; Visit Provider Internal Medicine Cardiovascular Disease
DX: I48.0 Paroxysmal atrial fibrillation (principal); Z79.01 Long term (current) use of anticoagulants
CPT/HCPCS: 36415; 85610

== ENCOUNTER 2019-12-22 13:19 | Outpatient (RCR) | payer OTHER, SELFPAY ==
[2019-09-13 12:53] VITALS: BMI 40.6
[2019-11-30 09:06] LABS: Prothrombin Time (Protime)PT. 34.8 SECONDS (11.7-14.9)
[2019-11-30 09:09] LABS: International Normalized Ratio 3.5
[2019-12-08 14:29] LABS: International Normalized Ratio 1.5; Prothrombin Time (Protime)PT. 17.8 SECONDS (11.7-14.9)
[2019-12-16 13:44] LABS: International Normalized Ratio 1.4; Prothrombin Time (Protime)PT. 16.3 SECONDS (11.7-14.9)
[2019-12-22 13:43] LABS: International Normalized Ratio 1.6; Prothrombin Time (Protime)PT. 18.5 SECONDS (11.7-14.9)
== END 2019-12-22 18:00 | disposition home or self-care (01) ==
LOC: LAB 13:19
PROVIDERS: PCP Family Medicine Geriatric Medicine; Referring Provider Internal Medicine Cardiovascular Disease; Visit Provider Internal Medicine Cardiovascular Disease
DX: I48.0 Paroxysmal atrial fibrillation (principal); Z79.01 Long term (current) use of anticoagulants
CPT/HCPCS: 36415; 85610

== ENCOUNTER 2019-12-29 08:03 | Outpatient (RCR) | payer OTHER, SELFPAY ==
[2019-09-13 12:53] VITALS: BMI 40.6
[2019-12-29 08:38] LABS: International Normalized Ratio 1.8; Prothrombin Time (Protime)PT. 20.2 SECONDS (11.7-14.9)
== END 2019-12-29 18:00 | disposition home or self-care (01) ==
LOC: LAB 08:03
PROVIDERS: PCP Family Medicine Geriatric Medicine; Referring Provider Internal Medicine Cardiovascular Disease; Visit Provider Internal Medicine Cardiovascular Disease
DX: I48.0 Paroxysmal atrial fibrillation (principal); Z79.01 Long term (current) use of anticoagulants
CPT/HCPCS: 36415; 85610

== ENCOUNTER → 2020-03-01 13:20 | Outpatient (CLI) | payer OTHER, SELFPAY ==
[2019-09-13 12:53] VITALS: BMI 40.6
[2020-03-01 17:19] LABS: Vitamin D,25 Hydroxy 19.9 ng/mL
[2020-03-01 17:20] LABS: Absolute Lymphocyte Count 1.52 X10^3/uL (0.83-4.51); Absolute Neutrophil Count 3.4 X10^3/uL (2.0-7.7); Basophil# 0.07 X10^3/uL; Basophil% 1.3 % (0-1); Eosinophil# 0.15 X10^3/uL; Eosinophils% 2.7 % (0-5); Hematocrit 41.9 % (37-47); Hemoglobin 13.5 g/dL (12.0-15.0); Lymphocyte # 1.52 X10^3/ul (4.0); Lymphocyte % 27.1 % (19-41); Mean Corp Hgb Conc 32.2 g/dL (32-36); Mean Corpuscular Hgb 30.1 pg (27.0-32.0); Mean Corpuscular Volume 93.3 fL (81-99); Mean Platelet Vol. 11.9 fl (6.2-12.0); Monocyte# 0.47 X10^3/uL; Monocyte% 8.4 % (0-10); NRBC Flagged by Analyzer 0 % (0-5); Neutrophil # 3.38 X10^3/uL (2.7-7.7); Neutrophil % 60.3 % (47-70); Platelet Count 234 K/mm3 (150-450); RBC Distribution Width CV 13.3 % (11.6-14.6); RBC Distribution Width SD 45.2 fl (35.1-43.9); Red Blood Count 4.49 M/mm3 (4.2-5.4); White Blood Count 5.6 K/mm3 (4.4-11.0)
[2020-03-01 17:31] LABS: ALB/GLOB Ratio 1.1 RATIO (0.9-2.4); AST(SGOT) 35 U/L (15-37); Alanine Aminotransfer ALT/SGPT 52 U/L (13-56); Albumin, Serum 3.7 g/dL (3.2-5.0); Alkaline Phosphatase 55 U/L (45-117); Anion Gap 7 (5-15); BUN 17 mg/dL (7-18); BUN/Creat Ratio 15.2 RATIO (10-20); Calcium,Total 9.3 mg/dL (8.5-10.1); Chloride 107 mmol/L (98-107); Creatinine, Serum 1.12 mg/dL (0.55-1.02); EST Glomerular Filtration Rate 52 mL/min (>60); Est Glom Filt Rate - Afr Amer 63 mL/min (>60); Globulin 3.5 g/dL (2.2-4.2); Glucose 99 mg/dL (74-106); Potassium 4.3 mmol/L (3.5-5.1); Protein, Total 7.2 g/dL (6.4-8.2); Sodium Level 138 mmol/L (136-145); Thyroid Stim Hormone (TSH) 2.82 uIU/mL (0.358-3.74)
== END ==
PROVIDERS: PCP Family Medicine Geriatric Medicine; Visit Provider Family Medicine Geriatric Medicine
DX: I10 Essential (primary) hypertension (principal); E55.9 Vitamin D deficiency, unspecified
CPT/HCPCS: 36415; 80053; 82306; 84443; 85025

== ENCOUNTER → 2020-09-20 14:31 | Outpatient (CLI) | payer OTHER, SELFPAY ==
[2020-06-22 08:09] VITALS: BMI 41.3
[2020-09-20 15:27] LABS: Absolute Lymphocyte Count 1.52 X10^3/uL (0.83-4.51); Absolute Neutrophil Count 4.2 X10^3/uL (2.0-7.7); Basophil# 0.07 X10^3/uL; Basophil% 1.1 % (0-1); Eosinophil# 0.19 X10^3/uL; Eosinophils% 2.9 % (0-5); Hemoglobin 14.3 g/dL (12.0-15.0); Lymphocyte # 1.52 X10^3/ul (0.83-4.51); Lymphocyte % 23.2 % (19-41); Mean Corp Hgb Conc 33.3 g/dL (32-36); Mean Corpuscular Hgb 30.9 pg (27.0-32.0); Mean Corpuscular Volume 92.9 fL (81-99); Mean Platelet Vol. 10.9 fl (6.2-12.0); Monocyte# 0.56 X10^3/uL; Monocyte% 8.6 % (0-10); NRBC Flagged by Analyzer 0 % (0-5); Neutrophil # 4.18 X10^3/uL (2.7-7.7); Neutrophil % 63.9 % (47-70); Platelet Count 236 K/mm3 (150-450); RBC Distribution Width SD 44.4 fl (35.1-43.9); Red Blood Count 4.63 M/mm3 (4.2-5.4); White Blood Count 6.5 K/mm3 (4.4-11.0)
[2020-09-20 15:42] LABS: Vitamin D,25 Hydroxy 16.2 ng/mL
[2020-09-20 16:08] LABS: ALB/GLOB Ratio 1.1 RATIO (0.9-2.4); AST(SGOT) 60 U/L (15-37); Alanine Aminotransfer ALT/SGPT 78 U/L (13-56); Albumin, Serum 3.9 g/dL (3.2-5.0); Alkaline Phosphatase 55 U/L (45-117); Anion Gap 7 (5-15); BUN 17 mg/dL (7-18); BUN/Creat Ratio 15.3 RATIO (10-20); Calcium,Total 9.3 mg/dL (8.5-10.1); Chloride 103 mmol/L (98-107); Creatinine, Serum 1.11 mg/dL (0.55-1.02); EST Glomerular Filtration Rate 53 mL/min (>60); Est Glom Filt Rate - Afr Amer 64 mL/min (>60); Globulin 3.7 g/dL (2.2-4.2); Glucose 105 mg/dL (74-106); Potassium 4.3 mmol/L (3.5-5.1); Protein, Total 7.6 g/dL (6.4-8.2); Sodium Level 136 mmol/L (136-145); Thyroid Stim Hormone (TSH) 2.66 uIU/mL (0.358-3.74)
== END ==
PROVIDERS: PCP Family Medicine Geriatric Medicine; Referring Provider Family Medicine Geriatric Medicine; Visit Provider Family Medicine Geriatric Medicine
DX: I10 Essential (primary) hypertension (principal); E55.9 Vitamin D deficiency, unspecified
CPT/HCPCS: 36415; 80053; 82306; 84443; 85025

== ENCOUNTER → 2020-10-03 12:58 | Outpatient (CLI) | payer OTHER, SELFPAY ==
[2020-06-22 08:09] VITALS: BMI 41.3
--- NOTE | 2020-10-03 13:10 | RAD_ITS ---
STUDY: X-RAY CHEST REASON FOR EXAM: Female, 64 years old. AMIODARONE therapy. Evaluate for pulmonary sequelae. TECHNIQUE: Frontal and lateral views of the chest. COMPARISON: 07/09/2018. FINDINGS: Stable atelectasis/scarring at the left base. There is no demonstrated pleural abnormality. Cardiomegaly unchanged. Normal mediastinum and darinel. Normal visualized pulmonary arteries. Stable aortic tortuosity with calcification. Normal visualized thoracic spine. Normal visualized ribs, clavicles, and shoulders. There is no demonstrated abnormality of the visualized soft tissue structures of the upper abdomen. RAD/Chest PA and Lateral IMPRESSION: Stable cardiomegaly with left basilar atelectasis/scarring. No acute abnormality. No evidence of interstitial disease. Electronically Signed: Chidi Terrazas MD at 10:00 EDT , Service support ,
[2020-10-03 20:36] LABS: ALB/GLOB Ratio 1.1 RATIO (0.9-2.4); AST(SGOT) 45 U/L (15-37); Alanine Aminotransfer ALT/SGPT 61 U/L (13-56); Albumin, Serum 3.7 g/dL (3.2-5.0); Alkaline Phosphatase 48 U/L (45-117); Anion Gap 8 (5-15); BUN 20 mg/dL (7-18); BUN/Creat Ratio 19.4 RATIO (10-20); Calcium,Total 8.9 mg/dL (8.5-10.1); Chloride 104 mmol/L (98-107); Creatinine, Serum 1.03 mg/dL (0.55-1.02); EST Glomerular Filtration Rate 57 mL/min (>60); Est Glom Filt Rate - Afr Amer 69 mL/min (>60); Globulin 3.4 g/dL (2.2-4.2); Glucose 95 mg/dL (74-106); Potassium 4.1 mmol/L (3.5-5.1); Protein, Total 7.1 g/dL (6.4-8.2); Sodium Level 137 mmol/L (136-145)
== END ==
PROVIDERS: PCP Family Medicine Geriatric Medicine; Referring Provider Family Medicine Geriatric Medicine; Visit Provider Family Medicine Geriatric Medicine
DX: R74.8 Abnormal levels of other serum enzymes (principal); I27.20 Pulmonary hypertension, unspecified; I48.0 Paroxysmal atrial fibrillation; G47.33 Obstructive sleep apnea (adult) (pediatric)
CPT/HCPCS: 36415; 71046; 80053

== ENCOUNTER 2021-03-06 13:33 | Outpatient (CLI) | payer MEDICARE, SELFPAY ==
[2021-03-06 16:06] LABS: Absolute Lymphocyte Count 2.16 X10^3/uL (0.83-4.51); Absolute Neutrophil Count 4.7 X10^3/uL (2.0-7.7); Basophil# 0.07 X10^3/uL; Basophil% 0.9 % (0-1); Eosinophil# 0.14 X10^3/uL; Eosinophils% 1.9 % (0-5); Hematocrit 42.3 % (37-47); Hemoglobin 14.3 g/dL (12.0-15.0); Lymphocyte # 2.16 X10^3/ul (0.83-4.51); Lymphocyte % 28.6 % (19-41); Mean Corp Hgb Conc 33.8 g/dL (32-36); Mean Corpuscular Hgb 30.8 pg (27.0-32.0); Mean Corpuscular Volume 91.2 fL (81-99); Monocyte# 0.49 X10^3/uL; Monocyte% 6.5 % (0-10); NRBC Flagged by Analyzer 0 % (0-5); Neutrophil # 4.66 X10^3/uL (2.7-7.7); Neutrophil % 61.7 % (47-70); Platelet Count 273 K/mm3 (150-450); RBC Distribution Width CV 12.5 % (11.6-14.6); RBC Distribution Width SD 41.4 fl (35.1-43.9); Red Blood Count 4.64 M/mm3 (4.2-5.4); White Blood Count 7.6 K/mm3 (4.4-11.0)
[2021-03-06 16:24] LABS: Vitamin D,25 Hydroxy 19.5 ng/mL
[2021-03-06 16:42] LABS: AST(SGOT) 31 U/L (15-37); Alanine Aminotransfer ALT/SGPT 52 U/L (13-56); Albumin, Serum 3.7 g/dL (3.2-5.0); Alkaline Phosphatase 55 U/L (45-117); Anion Gap 13 (5-15); BUN 22 mg/dL (7-18); BUN/Creat Ratio 20.4 RATIO (10-20); Bilirubin, Direct 0.15 mg/dL (0.00-0.30); Chloride 102 mmol/L (98-107); Creatinine, Serum 1.08 mg/dL (0.55-1.02); EST Glomerular Filtration Rate 54 mL/min (>60); Est Glom Filt Rate - Afr Amer 65 mL/min (>60); Globulin 3.8 g/dL (2.2-4.2); Glucose 103 mg/dL (74-106); Potassium 4.3 mmol/L (3.5-5.1); Protein, Total 7.5 g/dL (6.4-8.2); Sodium Level 137 mmol/L (136-145)
== END 2021-03-06 23:59 | disposition short-term general hospital (02) ==
LOC: POLAB3 13:36
PROVIDERS: Nurse Practitioner Gerontology; PCP Family Medicine Geriatric Medicine; Visit Provider Family Medicine Geriatric Medicine
DX: I10 Essential (primary) hypertension (principal); E55.9 Vitamin D deficiency, unspecified; R74.8 Abnormal levels of other serum enzymes
CPT/HCPCS: 36415; 80048; 80076; 82306; 84443; 85025

== ENCOUNTER → 2021-07-19 | Outpatient (CLI) | payer MEDICARE, SELFPAY ==
--- NOTE | 2021-07-19 13:19 | BI_ITS ---
MAMMOGRAPHY - BILATERAL SCREENING REASON FOR EXAM: Female, 65 years old. Routine annual screening examination. PERTINENT HISTORY: Non-contributory. TECHNIQUE: Digital bilateral breast tone (3D mammographic acquisition) in the CC and MLO projections. 2-D mediolateral oblique (MLO) and craniocaudad (CC) views of both breasts were obtained. CAD: Full Field Digital Mammography with Computer Added Detection was performed. COMPARISON: Screening mammogram from 07/12/2010 FINDINGS: Breast Composition: There are scattered areas of fibroglandular density. There are no dominant masses or suspicious calcifications. No other significant abnormalities are identified. There has been no significant change since the prior study. BI/SCRN MAMM (CAD)W/TONE BILAT IMPRESSION: Stable bilateral screening mammogram. Yearly follow-up mammogram recommended. (A) ASSESSMENT CATEGORY: BIRADS Category 1: Negative. A letter regarding these results will be sent to the patient by the facility within 30 days. Approximately 10% of breast cancers are not detected by mammography. A normal mammogram should not delay biopsy of a clinically suspicious abnormality. [id number] Electronically Signed: Coleman Heredia, at 8:51 EDT ,
--- NOTE | 2021-07-19 13:24 | BD_ITS ---
STUDY: DUAL ENERGY X-RAY ABSORPTIOMETRY / DXA REASON FOR EXAM: Female, 65 years old. Z780. The patient is postmenopausal. TECHNIQUE: Bone Mineral Density (BMD) measurements of lumbar spine and bilateral hips were obtained. COMPARISON: Comparison is made with prior study of 07/12/2010. FINDINGS: Lumbar Spine (L1-L4): g/cm2 (1.149) / T-score (0.9) / Z-score (2.7) Findings are suggestive of normal bone density with a low fracture risk. Left Femur Total: g/cm2 (0.989) / T-score (0.4) / Z-score (1.6) Left Femoral Neck: g/cm2 (0.649) / T-score (-1.8) / Z-score (-0.3) Right Femur Total: g/cm2 (0.979) / T-score (0.3) / Z-score (1.6) Right Femoral Neck: g/cm2 (0.752) / T-score (-0.9) / Z-score (0.7) The T-Scores on the most recent prior examination were: Lumbar Spine (L1-L4): There has been improvement of bone density since the previous examination. Left Femur Total: which represents a worsening of 11.9%. Right Femur Total: which represents a worsening of 8.5%. BD/Dexa Bone Density Study IMPRESSION: The patient is considered osteopenic as outlined below according to World Jason Organization (WHO) criteria with a moderate fracture risk. There has been worsening of bone density since the previous examination. Reference Information: The T-score is the number of standard deviations above or below the standard which is normal for young adults at their peak bone mineral density. The World Health Organization (WHO) interprets the T-scores as follows: Above -1 Normal bone density Between -1 and -2.5 Osteopenia Equal to / or below -2.5 Osteoporosis As a practical clinical guideline, osteopenia may be graded as follows: Mild -1 through -1.5 Moderate -1.6 through -2.0 Severe -2.1 through -2.4 The Z-score is the number of standard deviations above or below age-matched controls. A Z-score of less than -1.5 would be considered abnormal. References: 1. NIH Osteoporosis and Related Bone Diseases www osteo.org 2. International Society for Clinical Densitometry www iscd.org 3. National Osteoporosis Foundation www nof.org Electronically Signed: Ryley Hahn MD at 12:56 EDT ,
== END | disposition home or self-care (01) ==
LOC: OPBI 13:16
PROVIDERS: PCP Family Medicine Geriatric Medicine; Visit Provider Family Medicine Geriatric Medicine
DX: Z12.31 Encounter for screening mammogram for malignant neoplasm of breast (principal); Z13.820 Encounter for screening for osteoporosis; Z78.0 Asymptomatic menopausal state
CPT/HCPCS: 77063; 77067; 77080

== ENCOUNTER → 2021-10-25 | Outpatient (CLI) | payer MEDICARE, SELFPAY ==
[2021-10-25 15:44] LABS: Absolute Lymphocyte Count 2.33 X10^3/uL (0.83-4.51); Basophil# 0.06 X10^3/uL; Basophil% 0.9 % (0-1); Eosinophil# 0.17 X10^3/uL; Eosinophils% 2.4 % (0-5); Hematocrit 43.3 % (37-47); Hemoglobin 14.5 g/dL (12.0-15.0); Lymphocyte # 2.33 X10^3/ul (0.83-4.51); Lymphocyte % 33.1 % (19-41); Mean Corp Hgb Conc 33.5 g/dL (32-36); Mean Corpuscular Hgb 31.4 pg (27.0-32.0); Mean Corpuscular Volume 93.7 fL (81-99); Mean Platelet Vol. 11.1 fl (6.2-12.0); Monocyte% 7.1 % (0-10); NRBC Flagged by Analyzer 0 % (0-5); Neutrophil # 3.96 X10^3/uL (2.7-7.7); Neutrophil % 56.2 % (47-70); Platelet Count 249 K/mm3 (150-450); RBC Distribution Width CV 12.7 % (11.6-14.6); RBC Distribution Width SD 43.9 fl (35.1-43.9); Red Blood Count 4.62 M/mm3 (4.2-5.4)
[2021-10-25 15:55] LABS: Vitamin D,25 Hydroxy 20.2 ng/mL
[2021-10-25 16:06] LABS: AST(SGOT) 24 U/L (15-37); Alanine Aminotransfer ALT/SGPT 42 U/L (13-56); Albumin, Serum 3.7 g/dL (3.2-5.0); Alkaline Phosphatase 57 U/L (45-117); Anion Gap 9 (5-15); BUN 12 mg/dL (7-18); BUN/Creat Ratio 11.8 RATIO (10-20); Calcium,Total 9.1 mg/dL (8.5-10.1); Chloride 104 mmol/L (98-107); Creatinine, Serum 1.02 mg/dL (0.55-1.02); EST Glomerular Filtration Rate 58 mL/min (>60); Est Glom Filt Rate - Afr Amer 70 mL/min (>60); Globulin 3.6 g/dL (2.2-4.2); Glucose 104 mg/dL (74-106); Potassium 4.6 mmol/L (3.5-5.1); Protein, Total 7.3 g/dL (6.4-8.2); Sodium Level 138 mmol/L (136-145); Thyroid Stim Hormone (TSH) 3.99 uIU/mL (0.358-3.74)
== END | disposition home or self-care (01) ==
LOC: POLAB3 09:18
PROVIDERS: PCP Family Medicine Geriatric Medicine; Visit Provider Family Medicine Geriatric Medicine
DX: E55.9 Vitamin D deficiency, unspecified (principal); I10 Essential (primary) hypertension
CPT/HCPCS: 36415; 80053; 82306; 84443; 85025

== ENCOUNTER → 2022-03-11 | Outpatient (CLI) | payer MEDICARE, SELFPAY | END | disposition home or self-care (01) | LOC: POLAB3 13:33 | PROVIDERS: PCP Family Medicine Geriatric Medicine; Visit Provider Family Medicine Geriatric Medicine | DX: I10 Essential (primary) hypertension (principal); E55.9 Vitamin D deficiency, unspecified | CPT/HCPCS: 36415; 80053; 82306; 84443 ==

== ENCOUNTER → 2022-05-10 | Outpatient (CLI) | payer MEDICARE, SELFPAY ==
--- NOTE | 2022-05-10 12:57 | CT_ITS ---
PROCEDURE: CT RIGHT KNEE WITHOUT CONTRAST REASON FOR EXAM: Female, 66 years old. Preoperative planning for the MakoPlasty Robotic knee surgery. Knee pain. TECHNIQUE: Transaxial CT of the hip, knee and ankle were obtained. Coronal and sagittal reconstruction images of the knee were provided. Individualized dose optimization techniques were used for this CT. COMPARISON: None. FINDINGS: Standard protocol for the preoperative planning for the MakoPlasty robotic knee surgery was performed. Mild arthrosis of the right hip, moderate tricompartmental arthrosis of the knee and mild arthrosis of the tibiotalar and subtalar joints. CT/Extremity Lower without Contra IMPRESSION: Preoperative MakoPlasty Robotic knee surgical CT evaluation with findings as described above. Electronically Signed: Chidi Terrazas, at 15:39 EDT ,
== END | disposition home or self-care (01) ==
LOC: CT 12:46
PROVIDERS: PCP Family Medicine Geriatric Medicine; Referring Provider Specialist; Visit Provider Specialist
DX: M21.161 Varus deformity, not elsewhere classified, right knee (principal)
CPT/HCPCS: 73700

== ENCOUNTER 2022-05-22 16:58 | Observation (INO) | payer MEDICARE, SELFPAY ==
--- NOTE | 2022-05-06 22:40 | PCM.HP.BLA ---
History and Physical History and Physical? Patient Name: Elham Willams : 1955 From:? DIAMOND CERVANTES PA-C? DATE OF SURGERY:? 05/22/2022 SCHEDULED PROCEDURE:? Right total knee arthroplasty HISTORY OF PRESENT ILLNESS: Preoperative history and physical exam was performed on May 06, 2022.? This is a 66-year-old female who has had ongoing pain for nearly 10 years in bilateral knees.? Patient states the right knee has been hurting worse than the left.? Patient's pain is been intermittent, aching, sharp.? Pain is increased with going up and down stairs, walking.? Pain is located over the anterior medial knee.? She denies any numbness and tingling in the bilateral lower extremity.? Patient does report the pain occasionally wakes her at night.? She has difficulty with activities of daily living including shopping and leisure activities such as walking.? She has tripped/stumbled secondary to the knee pain.? Patient has attempted rest, ice, heat, elevation with no relief.? She has been through home exercises with no relief.? She denies past surgical history on bilateral knees.? After failing conservative measures and discussing treatment options with Dr. Siddhartha Hope, the patient does wish to proceed with a right total knee arthroplasty.? This will be staged with a left total knee arthroplasty in the future.? She does have medical history pertinent for hypertension, depression, sleep apnea with use of CPAP and atrial fibrillation.? She is currently on Eliquis.? We are obtaining surgical clearance from the primary care physician Dr. Aranda and stapling machine operator Dr. Rivera.? We are also asking for assistance with perioperative management of her Eliquis.? She denies past history of DVT or pulmonary embolism.? Denies any recent chest pain, shortness of breath, fevers chills or recent infections. REVIEW OF SYSTEMS: Review Of Systems: Constitutional: Reports weight change, but denies change in appetite and fever. Cardiovasular: Denies chest pain, heart murmur and irregular heartbeat. Respiratory: Denies cough, pneumonia, shortness of breath, tuberculosis and wheezing. Gastrointestinal: Denies constipation, diarrhea, heartburn, nausea, rectal itching, bloody stools and vomiting. Musculoskeletal: Reports gait disturbance, but denies leg swelling, pain, trouble walking and weakness. Skin: Denies Raynaud's, history of shingles and tattoo. Neurological: Denies ambulatory dysfunction, dizziness, numbness/tingling and tremor. Psychiatric: Denies anxiety, insomnia and stress. Hematologic/Lymphatic: Denies anemia, bleeding/bruising tendency and past transfusion. Reviewed, no changes. PAST MEDICAL HISTORY: Advance Care Plan: Other Directive, POA Effective Date: 01/28/2022 Other Directive, LIVING WILL Effective Date: 01/28/2022 Past Medical History: Medical Problems: Arthritis, Depression, High Blood Pressure, Sleep Apnea, A-Fib Accidents: Fracture - LT ARM / [place] Surgical Hx: Tonsillectomy - (1985) [facility] Anesthesia Complications: None Assistive Devices: Cpap, Glasses Reviewed, no changes. SOCIAL HISTORY: Social History: Marital: .Occupation: Retired.Work Status: Retired.Hand Dominance: Right-handed. Personal Habits:? Cigarette Use: Former.Smokeless Tobacco: Never Used Smokeless Tobacco.E-Cigarette Use: Never used.Alcohol: Occasionally.Drug Use: Denies Use.Enjoy Exercising: Never Exercises. Reviewed, no changes. VITALS: Ht: 63 Wt: 240lb Wt k.864 BMI: 42.5 BP: 138/84 Pulse: 90 Resp: 16 T: 97.7 T: 36.5C Pain Level: 2 O2SatR: 99 ALLERGIES: Sulfa? MEDICATIONS: Eliquis 5 mg 1po bid, Hydrochlorothiazide 12.5 mg 1 by mouth every day, Losartan Potassium 100 mg 1 by mouth every day, Citalopram Hydrobromide 40 mg 1 by mouth every day, Amlodipine Besylate 5 mg 1 by mouth every day, Levothyroxine Sodium 50 mcg 1 by mouth every day, Metoprolol Succinate ER 25 mg 1 by mouth every day, Vitamin D (Cholecalciferol) 50 mcg (1999) 1po qday PRE-OP EXAM:? General appearance:NORMAL? ? ? Other: Eyes: Conjunctivae and lids: NORMAL? Pupils: ERR Ears, Nose, Mouth, and Throat: NORMAL? Other: Inspection of lips, teeth and gums: NORMAL? ?Other: Neck: Examination of neck: no masses noted. Respiratory: Assessment of respiratory effort: NORMAL? ?Other: ?Auscultation of lungs: clear to auscultation no wheezes, rhonchi or rales. Cardiovascular:? Auscultation of heart: Irregular irregular rhythm consistent with atrial fibrillation PHYSICAL EXAMINATION: On exam of the right knee there is no erythema or signs of infection.? Patient does have mild effusion.? There is tenderness to palpation along the medial joint line and lateral joint line.? She has varus alignment which is correctable on exam.? Range of motion: 0 extension to 105 flexion with calf to thigh.? Sensation intact to light touch.? Firm endpoint with varus and valgus stress test and anterior/posterior drawer exam. IMAGING STUDIES: Bilateral knees reveal varus alignment with medial joint space narrowing, subchondral sclerosis, osteophyte formation consistent with severe [id number] erosive stage IV osteoarthritis. IMPRESSION: 1.? Severe right knee osteoarthritis with varus deformity 2.? Severe left knee osteoarthritis with varus deformity 3.? Hypertension 4.? Atrial fibrillation: Currently on Eliquis 5.? Sleep apnea with use of CPAP 6.? Depression 7.? Morbid Obesity with BMI 42.5 PLAN: Dr. Siddhartha Hope did discuss and review with the patient all treatment options including surgical versus nonsurgical options.? Patient does wish to proceed with the above-stated procedure.? Potential risks, benefits, and complications of the procedure were discussed in detail including but not limited to , infection, nerve and blood vessel damage, persistent pain, numbness, tingling, paresthesias, blood clot, pulmonary embolism, and requirement for possible further surgery.? The patient expressed full understanding and has no further questions for the doctor.? Patient does agree to proceed with the above-stated procedure and has signed the surgery consent form. This dictation was created using voice recognition software. Phonetic and/or grammatical errors may exist. ___? I have re-examined the patient.? There are no clinical changes since date of exam. ___? See progress notes for changes. ___? Dictated on admission Date: ? ? ?Time: Signature:
[2022-05-10 13:39] LABS: Absolute Lymphocyte Count 2.02 X10^3/uL (0.83-4.51); Absolute Neutrophil Count 4.4 X10^3/uL (2.0-7.7); Basophil# 0.08 X10^3/uL; Basophil% 1.1 % (0-1); Eosinophil# 0.21 X10^3/uL; Eosinophils% 2.9 % (0-5); Hematocrit 45.2 % (37-47); Hemoglobin 14.5 g/dL (12.0-15.0); Lymphocyte # 2.02 X10^3/ul (0.83-4.51); Lymphocyte % 27.5 % (19-41); Mean Corp Hgb Conc 32.1 g/dL (32-36); Mean Corpuscular Hgb 30.7 pg (27.0-32.0); Mean Corpuscular Volume 95.6 fL (81-99); Monocyte# 0.61 X10^3/uL; Monocyte% 8.3 % (0-10); NRBC Flagged by Analyzer 0 % (0-5); Neutrophil # 4.41 X10^3/uL (2.7-7.7); Neutrophil % 59.9 % (47-70); Platelet Count 223 K/mm3 (150-450); RBC Distribution Width CV 12.5 % (11.6-14.6); RBC Distribution Width SD 44.6 fl (35.1-43.9); Red Blood Count 4.73 M/mm3 (4.2-5.4); White Blood Count 7.4 K/mm3 (4.4-11.0)
[2022-05-10 14:01] LABS: Albumin, Serum 3.6 g/dL (3.2-5.0); Anion Gap 11 (5-15); BUN 16 mg/dL (7-18); BUN/Creat Ratio 16.7 RATIO (10-20); Calcium,Total 9.2 mg/dL (8.5-10.1); Chloride 101 mmol/L (98-107); Creatinine, Serum 0.96 mg/dL (0.55-1.02); EST Glomerular Filtration Rate 62 mL/min (>60); Est Glom Filt Rate - Afr Amer 75 mL/min (>60); Glucose 135 mg/dL (74-106); Potassium 3.8 mmol/L (3.5-5.1); Sodium Level 139 mmol/L (136-145)
[2022-05-10 14:10] LABS: Hemoglobin A1c 5.7 % (3.8-5.6)
[2022-05-10 14:15] LABS: Magnesium 1.8 mg/dL (1.6-2.6); Thyroid Stim Hormone (TSH) 2.63 uIU/mL (0.358-3.74)
[2022-05-22] VITALS (12 sets, daily range): BP systolic 72–133; BP diastolic 49–87; PULSE 68–113; RESP 16–18; TEMP 36.2–36.9; O2SAT 92–99; BMI 42.1; BMI 43.5
--- NOTE | 2022-05-22 08:39 | PCM.OPRPT ---
Report of Operation Date of Procedure: 05/22/22 Pre-Operative Diagnosis: Right knee primary osteoarthritis Post-Operative Diagnosis: Right knee primary osteoarthritis Surgery/Procedure Performed:: Right minimally invasive robotic total knee replacement Description of Surgical Findings:: Stable knee with good patella tracking Surgeon: Siddhartha Hope regulatory product manager: Romeo Whitt Type of Anesthesia: Spinal Anesthesiologist: Markel Mccarthy Special Medications: 2 g Ancef, 1 g TXA at incision, 1 g TXA closure, 10 mg Decadron, joint cocktail (5 mg Duramorph, 30 mL of 0.5% Ropivicaine, 1000 units of epinephrine, 30 mg of Toradol) Specimen's removed: Bony cuts Estimated Blood Loss (mL): 50 Fluids Replaced: 1000 mL crystalloid Description of Procedure: Implants used: 1. Paxinos size 3 triathlon cruciate retaining distal femoral press-fit component 2. Paxinos size 4 press-fit tritanium tibial baseplate 3. Niyah X3 9 mm CS polyethylene 4. Niyah X3 32 mm asymmetric patella Brief history operative indications: 66-year-old f with history of right knee osteoarthritis with radiographic findings with loss of joint space, osteophyte formation and subchondral sclerosis. Failed conservative measures as mentioned in the H&P. Discussion of total knee arthroplasty as well as risk and benefits were discussed the patient including but not limited to blood loss, DVTs, PEs, neurovascular damage, general risk of anesthesia including loss of life, and stiffness or instability were discussed with patient. Patient demonstrated understanding and was able to sign informed consent. Procedure: On the date of procedure patient's right lower extremity was marked in the preoperative area. The patient was then taken back to the operating room where the patient was placed on the table in the supine position. All bony prominences were identified a well-padded. Anesthesia assumed control of the C-spine and airway and remained controlled throughout the remainder of the procedure. A tourniquet was placed on the right upper thigh and the leg was prepped in a sterile fashion. The surgeon then scrubbed at this time .Upon reentering the room right lower extremity was draped in a standard orthopedic fashion. A timeout was then called and everyone agreed upon the side, the site, the procedure to be performed, patient's identity and antibiotics given. Esmarch bandage was used to exsanguinate the extremity and the tourniquet was placed up to 250 mmHg with the knee in flexion. A midline skin incision was made and sharp dissection was taken down through skin subcutaneous tissue and fat. The standard medial parapatellar incision was made and the patella was subluxed laterally. An Appropriate deep MCL release was done and the fat pad was resected. Our attention was then directed to the patella. The patella was everted and a flat resection was made. The knee was then flexed up in 2 femoral pins were placed inside the incision and 2 tibial pins were placed outside the incision in the medial tibia bicortically. Once this was completed the 2 checkpoints in the femur and tibia were placed. Knee was then flexed up and the bony landmarks were registered. Once this was completed knee was taken through range of motion and manually stressed allowing us to a plan for an appropriate tibial cut. The robotic arm was brought into the field sterilely and checkpoint and saw were registered. Based on the patient's deformity the tibial cut was made neutral to the tibial axis. At this time the tensioner was then placed in the joint and ligament tension was checked at 90 degrees and full extension. Based on the patient's ligamentous tension appropriate adjustments were made to the operative plan and ligament releases were done. Once we were happy with our operative plan with balanced flexion and extension gaps our attention was directed to the femur. The robot was brought into the field sterilely and registered. Posterior condylar cuts, anterior chamfer cuts and anterior cuts were appropriately made for a size 3 femur. When these were completed the saws were switched out in the distal femoral and posterior chamfer cuts were made. Protecting the soft tissue throughout this time. A size 4 tibial base plate was selected. the knee was flexed to 90 degrees and the soft tissues and posterior osteophytes were removed from the joint. 40 cc of the periarticular injection was injected into the posterior medial corner of the joint. The appropriate trials were then placed on the femur and tibia. A trial polyethylene was trialed to ensure proper balancing and stability of the knee. The appropriate tibial internal rotation was then marked with a bovie. Our attention was then directed to the patella. The lug holes were drilled and the patella trial was placed. Patellar tracking was checked and deemed appropriate. Once we were happy lug holes were drilled for the femur and trial components were removed. the tibia was subluxed and pinned into place and the keel was punched and drilled appropriately. Final components were verified and opened, and cement was mixed in a vacuum. Bilbus Simplex cement was used. The wound was copiously irrigated with normal saline. When the cement was ready the components were impacted into place starting with the tibia, femur and finally the patella. The trial poly component was placed and the knee was placed in full extension. All excess cement was removed in the process. Once the cement had cured the tracking, alignment and balance were verified and a size 9 mm CS polyethylene component was placed. Once the final components were placed a 3-minute dilute Betadine lavage was performed followed by an Irrisept lavage was performed and the wound was copiously irrigated with normal saline solution and the periarticular injection was given. The wound was closed in a layer yen fashion using #1 vicryl interrupted sutures for the arthrotomy, 2-0 interrupted Vicryl suture for the subcuticular layer and triston for final skin closure. A sterile compressive dressing was then placed. The patient was then awakened from anesthesia, transferred to the [facility] and transferred to the PACU for recovery. Post op plan DVT ppx: resume eliquis for dvt ppx, thigh high compression stockings Follow up: in office in 2 weeks for wound check PT: to start POD #0 at hospital, outpatient PT should be arranged. Patient will be placed on extended oral antibiotics due to high risk nature of comorbidities including BMI over 40. Doxycycline 100 mg p.o. twice daily x14 days My physician assistant professor of business was a vital part of this case. He was important in appropriate retraction during the case, and protection of soft tissues during bony cuts. His intimate knowledge of the case and my steps aided in safe and expedient completion of the procedure as well as appropriate position of the leg during the case. He was also vital in assisting with closure under my direct supervision. Due to the complexity of this case robotic arm was used to assist in the surgery to improve accuracy and clinical outcomes. Complications No intraoperative complications Admit VTE Documentation VTE Present on Admission: No VTE Mechan Device Prophylaxis: SCD's and Thigh High BUTCH Hose VTE Pharm Prophylaxis ordered?: Yes
[2022-05-22] MEDS: Lactated Ringers 1,000 ML 15 ML IV (10:00)
[2022-05-22] MEDS: Magnesium 2 GM for ERAS IV (10:10)
[2022-05-22] MEDS: Gabapentin 600 MG Tablet PO (10:16)
[2022-05-22] MEDS: Acetaminophen 500 MG Tablet 1000 MG PO ×2 (10:17→20:34)
[2022-05-22 11:00] LABS: Bedside Glucose 156 mg/dL (74-106)
[2022-05-22] MEDS: Cefazolin 2 GM in 0.9% Normal Saline 100 ML IV (12:00)
--- NOTE | 2022-05-22 12:00 | KNEE_PTH ---
PATIENT: YORDY HAN LOC: 3 U#:[id number] AGE/SX: 66/F ROOM: [facility] RE05/22/[address]: Dr. Siddhartha Hope MD : 1955 BED: 1 DIS: 05/23/2022 SPEC #: [id number] RECD: 05/22/22 14:00 STATUS: MONICA REQ #: [id number] TOAN: 05/22/22 12:[address]: Siddhartha Hope DEPT: SURGICAL PATHOLOGY RECD BY: Mckenna Villegas ENTERED: 05/23/22 10:52 SP TYPE: TOTAL KNEE OTHR DR: MD Dr. Marian Malhotra Dr., MD Dr. Nicholas F Kotsonis, MD Dr. Paige Pierce, MD Dr. Tai Chi Kwok, MD Tissues: Knee, NOS Procedures: Decalcification bone/plaque Surgery Specimen Level IV HEADER OPERATION: ERAS, total knee replacement robotic arm assist PRE-OP DIAGNOSIS: Severe right knee osteoarthritis with varus deformity TISSUE SUBMITTED: Bone and tissue right knee MICROSCOPIC DIAGNOSIS Bone and tissue of right knee, total knee resection: Severe degenerative joint disease. Mild synovial hyperplasia. AM:ayden 05/29/2022 MICROSCOPIC DESCRIPTION Slides are reviewed. GROSS DESCRIPTION Received is one container designated bone and soft tissue right knee. The specimen consists of multiple fragments of vazquez-yellow bone measuring in aggregate 17.0 x 12.0 x 2.0 cm. Also in the specimen container are multiple fragments of yellow-white soft tissue measuring in aggregate 5.0 x 1.0 x 0.5 cm. A number of bony fragments contain articular surfaces consistent with tibial plateau and femoral condyle and displaying prominent osteophyte formation, eburnation and bone erosion. Data Center Architect sections are submitted in two cassettes as follows: 1 - soft tissue, 2 - bone after decalcification. / AM:ayden 05/23/2022 TC:5 CPT: 84508, 58702
[2022-05-22] MEDS: TXA 1000mg in NS100 100ml (IVPB at Incision) 660 MG IV (12:10)
[2022-05-22] MEDS: dexAMETHasone 10 MG/ML Vial IV (12:10)
[2022-05-22] MEDS: JPS (Morphine 10mg/ml) OPERA.SITE (12:44)
[2022-05-22] MEDS: TXA 1000mg in NS100 100ml (IVPB at Closure) 660 MG IV (13:00)
[2022-05-22] MEDS: Lactated Ringers 1,000 ML 999 ML IV (13:50)
--- NOTE | 2022-05-22 13:55 | RAD_ITS ---
STUDY: X-RAY - RIGHT KNEE REASON FOR EXAM: Female, 66 years old. Post op -- AP and Lateral xray of operative knee in PACU TECHNIQUE: 2 view(s) of the knee. COMPARISON: None. FINDINGS: Normal visualized distal femur. Normal visualized proximal tibia and fibula. Normal proximal tibiofibular articulation. The patient is status post total knee replacement. There is good alignment. Postoperative soft tissue changes. RAD/Knee 1 or 2 Views IMPRESSION: Status post total knee replacement. Position and alignment. Postoperative soft tissue changes. Electronically Signed: Ryley Hahn MD at 14:48 EDT ,
[2022-05-22] MEDS: Lactated Ringers 1,000 ML 125 ML IV (15:40)
--- NOTE | 2022-05-22 17:35 | PCM.CONS.GEN ---
Assessment & Plan Assessment/Plan (1) Osteoarthritis of right knee: (2) AIRAM on CPAP: (3) Essential hypertension: (4) Paroxysmal atrial fibrillation: (5) Pulmonary hypertension: (6) Obesity: QUALIFIERS: Body mass index: BMI 40.0-44.9 Obesity classification: adult class 3 (BMI >= 40) Obesity type: due to excess calories Serious obesity comorbidity presence: with serious comorbidity Qualified Code(s): E66.01 - Morbid (severe) obesity due to excess calories; Z68.41 - Body mass index [BMI]40.0-44.9, adult PLAN: Plan #Right knee osteoarthritis -Right minimally invasive robotic total knee replacement on 05/22 w/ Dr. Hope -Management per primary -Remains on doxycycline -PT/OT #Postop hypotension -We will hold antihypertensives except for metoprolol which we will decrease to 12.5 twice daily with holding parameters due to her A-fib -Receiving fluids -We will check labs to evaluate hemoglobin and have baseline in the event she worsens instead of improves #AIRAM -CPAP qhs #Afib -Resume eliquis when cleared to do so by ortho -decreased metoprolol dose with holding parameters #Hypothyroidism -Continue Synthroid -We will check TSH given blood pressure #DVT ppx: Per Ortho Holly Soares MD HPI Consult Data Date of Consult: 05/22/22 HPI Narrative Reason for Consultation: Medical management HPI Narrative: Right hipWEMELISA HAN, is a 66 F with a history of AIRAM on CPAP, paroxysmal A-fib, hypertension who presented to [facility] 05/22/2022 for right knee primary osteoarthritis and underwent right minimally invasive robotic total knee replacement. Hospitalist consulted for postop management. Patient seen at bedside and feeling well, reports she is starting to feel little bit of pain in her right knee but otherwise has no complaints and said she is really looking forward to going home tomorrow. No other complaints. [facility] Medical History (Updated 05/22/22 @ 17:[address] Holly Soares MD) Alcohol use Arthritis Cardiology follow-up encounter CPAP (continuous positive airway pressure) dependence Depression Essential hypertension Former smoker History of atrial fibrillation History of cardioversion History of echocardiogram History of pain when walking correction current use of anticoagulant Low iron Mixed hyperlipidemia AIRAM on CPAP Paroxysmal atrial fibrillation Post-menopausal Preoperative cardiovascular examination Pulmonary hypertension Thyroid disease Wears contact lenses Home Medications amlodipine 5 mg tablet 5 mg PO DAILY 07/07/18 [History Last Taken 05/22/22 08:15] metoprolol tartrate 50 mg tablet 50 mg PO BID 07/09/18 [History Last Taken 05/22/22 08:15] apixaban 5 mg tablet (Eliquis) 5 mg PO BID Pt wants to stop Warfarin, go back on Eliquis #60 tabs 03/16/20 [Rx Last Taken 05/18/22] citalopram 40 mg tablet (Celexa) 40 mg PO DAILY 06/14/20 [History Last Taken 05/21/22] hydrochlorothiazide 12.5 mg tablet 12.5 mg PO DAILY 06/14/20 [History Last Taken 05/21/22] levothyroxine 50 mcg tablet 50 mcg PO DAILY 06/14/20 [History Last Taken 05/22/22 08:15] losartan 100 mg tablet 100 mg PO DAILY 06/14/20 [History Last Taken 05/22/22 08:15] cholecalciferol (vitamin D3) 250 mcg (10,000 unit) tablet 250 mcg PO DAILY 04/12/22 [History Last Taken 05/21/22] Allergy/AdvReac Type Severity Reaction Status Date / Time Sulfa (Sulfonamide Allergy Unknown Big rash Verified 05/08/22 12:50 Antibiotics) Family History Mother Hypertension Father Pulmonary hypertension Surgical History History of tonsillectomy Social History Smoking Status: Former smoker Tobacco: How many years used: 12 how long ago did patient quit smokinmonths second hand exposure: No alcohol intake: current details: occasional substance use type: does not use caffeine: Yes Type: coffee Number of servings: 2 ROS ROS Narrative General: Denies fever/chills HENT: Denies headache, denies stuffy nose, denies sore throat EYES: Denies changes in vision Resp: Denies cough, denies shortness of breath Cardiac: Denies chest pain GI: Denies abdominal pain, denies changes in bowel, denies nausea/vomiting : Denies changes in urination Extremity: Denies swelling MSK: Denies weakness Neuro: Denies any numbness/tingling Heme: Denies any bleeding or bruising Skin: Denies rashes Psychiatric: No complaints voiced Physical Exam Narrative General: Alert, oriented, no apparent distress HEENT: Atraumatic, normocephalic Eyes: Anicteric, normal conjunctiva, extraocular movements grossly intact Neck: Supple Respiratory: Clear to auscultation bilaterally, normal respiratory effort Cardiovascular: Irregularly irregular GI: Soft, nontender, nondistended Extremities: No edema Musculoskeletal: Moving all extremities Neuro: No overt focal neurological deficits Skin: No rashes appreciated Psych: Cooperative Lab / Micro Data Result Diagrams: 05/10/22 12:45 05/10/22 12:45 Labs: Laboratory Results - last 24 hr 05/22/22 09:59: POC Glucose 156 H Radiology Impression Knee X-Ray 05/22/22 13:55 IMPRESSION: Status post total knee replacement. Position and alignment. Postoperative soft tissue changes. Electronically Signed: Ryley Hahn MD at 14:48 EDT , Charges/Coding Visit Charges Office Visits / Consults: [id number] OP Consult L3
[2022-05-22] MEDS: Famotidine 20 MG Tablet PO (17:55)
[2022-05-22] MEDS: Ketorolac 15 MG/ML Vial IV (17:57)
[2022-05-22 19:29] LABS: Absolute Lymphocyte Count 1.89 X10^3/uL (0.83-4.51); Basophil# 0.05 X10^3/uL; Basophil% 0.7 % (0-1); Eosinophil# 0.13 X10^3/uL; Eosinophils% 1.7 % (0-5); Hematocrit 39.1 % (37-47); Hemoglobin 12.6 g/dL (12.0-15.0); Lymphocyte # 1.89 X10^3/ul (0.83-4.51); Lymphocyte % 24.9 % (19-41); Mean Corp Hgb Conc 32.2 g/dL (32-36); Mean Corpuscular Volume 96.1 fL (81-99); Mean Platelet Vol. 10.7 fl (6.2-12.0); Monocyte# 0.54 X10^3/uL; Monocyte% 7.1 % (0-10); NRBC Flagged by Analyzer 0 % (0-5); Neutrophil # 4.95 X10^3/uL (2.7-7.7); Neutrophil % 65.3 % (47-70); Platelet Count 216 K/mm3 (150-450); RBC Distribution Width CV 12.9 % (11.6-14.6); RBC Distribution Width SD 45.2 fl (35.1-43.9); Red Blood Count 4.07 M/mm3 (4.2-5.4); White Blood Count 7.6 K/mm3 (4.4-11.0)
[2022-05-22 19:54] LABS: Anion Gap 5 (5-15); BUN 21 mg/dL (7-18); BUN/Creat Ratio 21.9 RATIO (10-20); Calcium,Total 8.5 mg/dL (8.5-10.1); Chloride 107 mmol/L (98-107); Creatinine, Serum 0.96 mg/dL (0.55-1.02); EST Glomerular Filtration Rate 62 mL/min (>60); Est Glom Filt Rate - Afr Amer 75 mL/min (>60); Estimated Creatinine Clearance 45.59 ml/min; Glucose 100 mg/dL (74-106); Potassium 3.8 mmol/L (3.5-5.1); Sodium Level 136 mmol/L (136-145); Thyroid Stim Hormone (TSH) 2.33 uIU/mL (0.358-3.74)
[2022-05-22] MEDS: Doxycycline 100 MG CAPSULE PO (20:34)
[2022-05-22] MEDS: Senna/Docusate Sodium 1 Tablet 2 TABLET PO (20:34)
[2022-05-22] MEDS: Metoprolol Tartrate 25 MG Tablet 12.5 MG PO (20:36)
[2022-05-22] MEDS: 0.9% Saline Lock 10 ML Syringe IV (20:44)
[2022-05-22] MEDS: Cefazolin 1 GM/50 ML BAG IV (20:44)
[2022-05-23] MEDS: oxyCODONE 5 MG Tablet PO ×2 (00:05→08:37)
[2022-05-23 02:21] VITALS: BP 116/42; PULSE 102; RESP 17; TEMP 36.6; O2SAT 94
[2022-05-23] MEDS: Cefazolin 1 GM/50 ML BAG IV (03:32)
[2022-05-23] MEDS: Acetaminophen 500 MG Tablet 1000 MG PO (05:43)
[2022-05-23] MEDS: Levothyroxine 50 MCG Tablet PO (05:43)
[2022-05-23 05:49] VITALS: BP 131/80; PULSE 100; RESP 18; TEMP 36.7; O2SAT 93
[2022-05-23 06:33] LABS: Hematocrit 38.3 % (37-47); Hemoglobin 12.4 g/dL (12.0-15.0); Mean Corp Hgb Conc 32.4 g/dL (32-36); Mean Corpuscular Hgb 30.9 pg (27.0-32.0); Mean Corpuscular Volume 95.5 fL (81-99); Mean Platelet Vol. 10.5 fl (6.2-12.0); Platelet Count 187 K/mm3 (150-450); RBC Distribution Width CV 12.8 % (11.6-14.6); RBC Distribution Width SD 44.7 fl (35.1-43.9); Red Blood Count 4.01 M/mm3 (4.2-5.4); White Blood Count 6.8 K/mm3 (4.4-11.0)
[2022-05-23 07:04] LABS: BUN 17 mg/dL (7-18); Creatinine, Serum 0.86 mg/dL (0.55-1.02); Estimated Creatinine Clearance 50.89 ml/min; Glucose 124 mg/dL (74-106)
[2022-05-23 07:05] LABS: Anion Gap 8 (5-15); BUN/Creat Ratio 19.9 RATIO (10-20); Calcium,Total 8.6 mg/dL (8.5-10.1); Chloride 106 mmol/L (98-107); EST Glomerular Filtration Rate 71 mL/min (>60); Est Glom Filt Rate - Afr Amer 85 mL/min (>60); Sodium Level 136 mmol/L (136-145)
--- NOTE | 2022-05-23 08:32 | PN.HOSP_ITS ---
Reason for Visit Reason for Visit: Diagnoses Morbid (severe) obesity due to excess calories (05/22/22) Obstructive sleep apnea (adult) (pediatric) (05/22/22) Essential (primary) hypertension (05/22/22) Pulmonary hypertension, unspecified (05/22/22) Paroxysmal atrial fibrillation (05/22/22) Unilateral primary osteoarthritis, right knee (05/22/22) Encounter for other preprocedural examination (05/22/22) Body mass index [BMI] 40.0-44.9, adult (05/22/22) Dependence on other enabling machines and devices (05/22/22) Subjective Subjective Reports a little pain around the tourniquet site but overall feeling very well. No other complaints. Objective Data Objective Data Vital Signs: Vital Signs Temp Pulse Resp BP Pulse Ox O2 Del Method O2 Flow Rate 98.1 F 100 18 131/80 H 93 Room Air 2 05/23/22 05:49 05/23/22 05:49 05/23/22 05:49 05/23/22 05:49 05/23/22 05:49 05/23/22 05:49 05/22/22 15:37 Oxygen Flow Rate (L/min) 2 Oxygen Delivery Method Room Air Weight: 107.955 kg Body Mass Index (BMI) 43.5 Intake & Output: Intake and Output for Last 24 Hours 05/21/22 05/22/22 05/23/22 23:59 23:59 23:59 Intake Total 4484 / 4684 370 / 370 Balance 4484 / 4684 370 / 370 Lab / Micro Data Result Diagrams: 05/23/22 06:11 05/23/22 06:11 Labs: Laboratory Results - last 24 hr 05/22/22 09:59: POC Glucose 156 H 05/22/22 19:03: WBC 7.6, RBC 4.07 L, Hgb 12.6, Hct 39.1, MCV 96.1, MCH 31.0, MCHC 32.2, RDW Std Deviation 45.2 H, RDW Coeff of Cesar 12.9, Plt Count 216, MPV 10.7, Immature Gran % (Auto) 0.300, Neut % (Auto) 65.3, Lymph % (Auto) 24.9, [place] % (Auto) 7.1, Eos % (Auto) 1.7, Baso % (Auto) 0.7, Absolute Neuts (auto) 5.0, Absolute Lymphs (auto) 1.89, Nucleated RBC % 0 05/22/22 19:03: Sodium 136, Potassium 3.8, Chloride 107, Carbon Dioxide 24.0, Anion Gap 5, BUN 21 H, Creatinine 0.96, Estim Creat Clear Calc 45.59, Est GFR (MDRD) Af Amer 75, Est GFR (MDRD) Non-Af 62, BUN/Creatinine Ratio 21.9 H, Glucose 100, Calcium 8.5, TSH 2.33 05/23/22 06:11: WBC 6.8, RBC 4.01 L, Hgb 12.4, Hct 38.3, MCV 95.5, MCH 30.9, MCH C 32.4, RDW Std Deviation 44.7 H, RDW Coeff of Cesar 12.8, Plt Count 187, MPV 10.5 05/23/22 06:11: Sodium 136, Potassium 4.0, Chloride 106, Carbon Dioxide 22.0, Anion Gap 8, BUN 17, Creatinine 0.86, Estim Creat Clear Calc 50.89, Est GFR (MDRD) Af Amer 85, Est GFR (MDRD) Non-Af 71, BUN/Creatinine Ratio 19.9, Glucose 124 H, Calcium 8.6 Micro: Microbiology 05/10/22 12:45 Swab (Method) Nasal Screen MRSA/MSSA - Final Radiography Diagnostic Testing: Radiology Impression Knee X-Ray 05/22/22 13:55 IMPRESSION: Status post total knee replacement. Position and alignment. Postoperative soft tissue changes. Electronically Signed: Ryley Hahn MD at 14:48 EDT , Physical Exam Narrative General: Alert, oriented, no apparent distress HEENT: Atraumatic, normocephalic Eyes: extraocular movements grossly intact Neck: Supple Respiratory: normal respiratory effort Cardiovascular: no edema appreciated GI: nondistended Extremities: Moving all extremities Neuro: No overt focal neurological deficits Psych: Cooperative Assessment & Plan Assessment/Plan (1) Osteoarthritis of right knee: (2) AIRAM on CPAP: (3) Essential hypertension: (4) Paroxysmal atrial fibrillation: (5) Pulmonary hypertension: (6) Obesity: QUALIFIERS: Obesity type: due to excess calories Obesity classification: adult class 3 (BMI >= 40) Serious obesity comorbidity presence: with serious comorbidity Body mass index: BMI 40.0-44.9 Qualified Code(s): E66.01 - Morbid (severe) obesity due to excess calories; Z68.41 - Body mass index [BMI]40.0-44.9, adult PLAN: Plan #Right knee osteoarthritis -Right minimally invasive robotic total knee replacement on 05/22 w/ Dr. Hope -Management per primary -Remains on doxycycline -PT/OT #Postop hypotension?resolved -We will hold antihypertensives except for metoprolol which we will decrease to 12.5 twice daily with holding parameters due to her A-fib -Receiving fluids -We will check labs to evaluate hemoglobin and have baseline in the event she worsens instead of improves -05/23: This is resolved. Resumed her hydrochlorothiazide and Norvasc. Continue metoprolol at current dose. Additional home medications can be resumed and titrated as an outpatient. Labs reviewed, okay for discharge replacement from hospitalist perspective #AIRAM -CPAP qhs #Afib -Resume eliquis when cleared to do so by ortho -decreased metoprolol dose with holding parameters #Hypothyroidism -Continue Synthroid -TSH within normal limits #DVT ppx: Per Ortho Holly Soares MD Charges/Coding Visit Charges Inpatient E&M: 80153 Subs Hosp L2
[2022-05-23] MEDS: Ensure Surgery 237 ML LIQUID PO (08:37)
[2022-05-23] MEDS: Citalopram 40 MG TABLET PO (08:39)
[2022-05-23] MEDS: APIXABAN 5 MG TABLET PO (08:39)
[2022-05-23] MEDS: Doxycycline 100 MG CAPSULE PO (08:39)
[2022-05-23 08:40] VITALS: BP 140/80; PULSE 98
[2022-05-23] MEDS: Metoprolol Tartrate 25 MG Tablet 12.5 MG PO (08:40)
[2022-05-23] MEDS: hydroCHLOROthiazide 12.5mg 12.5 MG PO (08:40)
[2022-05-23] MEDS: amLODIPine 5 MG Tablet PO (08:43)
[2022-05-23] MEDS: Senna/Docusate Sodium 1 Tablet 2 TABLET PO (08:43)
[2022-05-23] MEDS: Famotidine 20 MG Tablet PO (08:43)
[2022-05-23 08:45] VITALS: BP 140/80; PULSE 98; RESP 18; TEMP 36.9; O2SAT 98
--- NOTE | 2022-05-23 09:39 | PCM.PN.ORT ---
Subjective Subjective The patient was sitting in bedside chair upon examination. Patient denies any chest pain, shortness of breath, dizziness, lightheadedness, nausea or vomiting, or calf pain. Pain is controlled on medications. No adverse overnight events. Patient overall is doing well this morning. She has no pain while at rest but pain when she is up and moving. She does get some thigh pain from the tourniquet. Objective Data Objective Data Vital Signs: Vital Signs Temp Pulse Resp BP Pulse Ox O2 Del Method O2 Flow Rate 98.4 F 98 18 140/80 H 98 Room Air 2 05/23/22 08:45 05/23/22 08:45 05/23/22 08:45 05/23/22 08:45 05/23/22 08:45 05/23/22 08:45 05/22/22 15:37 Oxygen Flow Rate (L/min) 2 Oxygen Delivery Method Room Air Weight: 107.955 kg Body Mass Index (BMI) 43.5 Intake & Output: Intake and Output for Last 24 Hours 05/21/22 05/22/22 05/23/22 23:59 23:59 23:59 Intake Total 4484 / 4684 370 / 370 Balance 4484 / 4684 370 / 370 Lab / Micro Data Result Diagrams: 05/23/22 06:11 05/23/22 06:11 Labs: Laboratory Results - last 24 hr 05/22/22 09:59: POC Glucose 156 H 05/22/22 19:03: WBC 7.6, RBC 4.07 L, Hgb 12.6, Hct 39.1, MCV 96.1, MCH 31.0, MCHC 32.2, RDW Std Deviation 45.2 H, RDW Coeff of Cesar 12.9, Plt Count 216, MPV 10.7, Immature Gran % (Auto) 0.300, Neut % (Auto) 65.3, Lymph % (Auto) 24.9, [place] % (Auto) 7.1, Eos % (Auto) 1.7, Baso % (Auto) 0.7, Absolute Neuts (auto) 5.0, Absolute Lymphs (auto) 1.89, Nucleated RBC % 0 05/22/22 19:03: Sodium 136, Potassium 3.8, Chloride 107, Carbon Dioxide 24.0, Anion Gap 5, BUN 21 H, Creatinine 0.96, Estim Creat Clear Calc 45.59, Est GFR (MDRD) Af Amer 75, Est GFR (MDRD) Non-Af 62, BUN/Creatinine Ratio 21.9 H, Glucose 100, Calcium 8.5, TSH 2.33 05/23/22 06:11: WBC 6.8, RBC 4.01 L, Hgb 12.4, Hct 38.3, MCV 95.5, MCH 30.9, MCHC 32.4, RDW Std Deviation 44.7 H, RDW Coeff of Cesar 12.8, Plt Count 187, MPV 10.5 05/23/22 06:11: Sodium 136, Potassium 4.0, Chloride 106, Carbon Dioxide 22.0, Anion Gap 8, BUN 17, Creatinine 0.86, Estim Creat Clear Calc 50.89, Est GFR (MDRD) Af Amer 85, Est GFR (MDRD) Non-Af 71, BUN/Creatinine Ratio 19.9, Glucose 124 H, Calcium 8.6 Micro: Microbiology 05/10/22 12:45 Swab (Method) Nasal Screen MRSA/MSSA - Final Radiography Diagnostic Testing: Radiology Impression Knee X-Ray 05/22/22 13:55 IMPRESSION: Status post total knee replacement. Position and alignment. Postoperative soft tissue changes. Electronically Signed: Ryley Hahn MD at 14:48 EDT , Physical Exam Narrative Vital signs stable and afebrile. Patient did have earlier tachycardia but currently asymptomatic and within normal limits. Denies chest pain, palpitations or any shortness of breath. SCDs and BUTCH hose are in place bilaterally Patient is able to plantarflex and dorsiflex actively. Sensation is intact to light touch to saphenous, sural, superficial and deep peroneal, and tibial distribution. Neri wrap was removed and dressings are clean dry and intact. Negative Homans bilaterally, negative signs and symptoms of DVT. Const alert, oriented x3 and no apparent distress Assessment & Plan Assessment/Plan (1) Status post total right knee replacement: PLAN: 1. S/P right total knee arthroplasty POD #1 2. Continue Pain Medications: Tylenol and oxycodone 3. DVT Prophylaxis: Patient has resumed her Eliquis secondary to atrial fibrillation. This will cover her for postoperative DVT prophylaxis. 4. PT/OT: Weightbearing as tolerated with walker 5. H & H: 12.4/38.3, asymptomatic. 6. Continue postoperative medical management per medicine 7. Continue antibiotics for 2 weeks postoperatively. Currently on doxycycline for 2 weeks postoperatively. Antibiotics are in place secondary to BMI greater than 40.0. I discussed with the patient potential side effects of doxycycline including sensitivity to the sunlight and increased risk of skin burn. Recommend patient take appropriate precautions. Also recommend patient to take probiotic while on the antibiotic. Patient voiced understanding agreement. 8. Encouraged Incentive Spirometry 9. Disposition: Plan will be for probable discharge home today as long as patient is medically stable, tolerates therapy, and pain is well controlled. She would like her prescriptions E scribed to [facility] [place] [facility]. She has outpatient physical therapy established. She will follow-up per postop instructions. She has been instructed to contact her office upon discharge with any concerns or questions. I have reviewed the [place] Automated Rx Reporting System (OARRS) report for this patient for refill pattern and other prescriber involvement as part of the appropriate surveillance for the provision of acute and chronic controlled medications. The report was requested and reviewed on the date of this entry and was considered in the prescribing process. This dictation was created using voice recognition software. Phonetic and/or grammatical errors may exist.
--- NOTE | 2022-05-23 09:43 | DCINST_ITS ---
Discharge Instructions Diet Discharge Diet: No restrictions Activity Discharge Activity: May Not Drive (No driving for 6 weeks postoperatively and must be off narcotics and able to walk 100 feet without the use of cane or walker) May shower in (days): 1 (Please turn dressing away from water. Okay to get wet as long as dressing is intact to skin.) Ice area for (Minutes): 20 (Every 1-2 hours while awake. Please place barrier between the skin and ice pack.) Weight Bearing Status: Weight bearing as tolerated Keep extremity elevated above heart level: Operative Extremity Dressing / Incision Call your doctor if your incision/area has: Continuous Slow Oozing, Sudden Increased Bleeding, Increased Pain/ Swelling, Increased Redness and Foul Smelling Discharge Call your doctor if you observe: Fever of 101 or Higher, Coldness, Increased Pain, Numbness or Tingling, Change in Color, Shortness of breath, Chest pain, Calf discomfort and Uncontrolled pain Remove Dressing in: 4 days (Okay to remove dressing on May 27, 2022) Additional Dressing/Incision Instructions:: Follow [facility] Post-op Instructions. Once postoperative dressing has been removed only use gentle soap and water over the incision. Do not use any ointments, Neosporin, salves, alcohol pads over the incision for 6 weeks postoperatively. Do not submerge underwater for 6 weeks postoperatively. Continue with BUTCH hose/elastic stockings for 2 weeks postoperatively. May rem ove at nighttime but needs to be placed back on the leg during the day. Do NOT use alcohol with narcotic pain medication. Do NOT make important decisions while taking narcotic medication. If you have problems with taking your medication (rash, itching, nausea, etc.) call the office at once. Follow Up Care Test Results: Test results from this visit will be discussed in further detail at your follow- up appointment, if applicable. Discharge Plan Admission Admit Date/Time: 05/22/22 16:58 Attending Provider: Siddhartha Hope Primary Care Provider: Luis Miguel Aranda [employer] Providers: Holly Soares ; Chandni Garsia ; Marian Gastelum ; Marian Lowe ; Nicanor Bhandari Discharge Orders/Prescriptions Prescriptions: New acetaminophen 500 mg Tablet 1,000 mg PO Q8 14 Days Qty: 84 0RF Rx Instructions: Do not take more than 3000 mg Tylenol in a 24-hour period. famotidine 20 mg Tablet 20 mg PO DAILY 30 Days Qty: 30 0RF doxycycline monohydrate 100 mg Capsule 100 mg PO BID 14 Days Qty: 28 0RF Rx Instructions: Take for 2 weeks postoperatively oxycodone 5 mg Tablet 5 - 10 mg PO Q4H PRN PRN (Reason: Pain Score 4-10) 5 Days Qty: 60 0RF sennosides-docusate sodium [Stool Softener-Stimulant Laxat] 8.6-50 mg Tablet 2 tab PO BID 3 Days Qty: 12 0RF Rx Instructions: Take until first bowel movement, then as needed Continued metoprolol tartrate 50 mg tablet 50 mg PO BID amlodipine 5 mg tablet 5 mg PO DAILY citalopram [Celexa] 40 mg tablet 40 mg PO DAILY hydrochlorothiazide 12.5 mg tablet 12.5 mg PO DAILY levothyroxine 50 mcg tablet 50 mcg PO DAILY losartan 100 mg tablet 100 mg PO DAILY cholecalciferol (vitamin D3) 250 mcg (10,000 unit) tablet 250 mcg PO DAILY Eliquis 5 mg tablet 5 mg PO BID Qty: 60 11RF Referrals / Follow Up: Physical,Therapy [Other] - 05/24/22 1:00 pm Luis Miguel Aranda Chi, MD [Primary Care Provider] - Romeo Whitt PA-C [Med Staff - [facility] Practice Prof] - 06/06/22 1:15 pm Disposition Disposition (needs filled in before D/C Order can be placed): Home, Self Care
--- NOTE | 2022-05-23 11:46 | CASEMGMT ---
RN?CM?BENDER MACHINE?CM?to room to meet with patient for initial transition planning/care coordination?assessment.?RN?CM?introduced self and role at [facility].? Pt voices understanding and consents to?assessment?at this time.? Pt resting in bed in no distress at this time.? Meghan Vargas, @ bedside. Pt is A/O at this time and answers all questions appropriately.?? Care providers, pharmacy, and demographics verified/updated at this time. PCP: Dr Aranda Specialists: Dr Hope-ortho. Dr Rivera-cardiology. Dr Ruiz-pulmonology Preferred Pharmacy: [facility] Insurance: Pro V&V Prescription Benefit:?Yes Living Will/HPOA:?Has LW and HCPOA, who is her brother, Vitor WALKER: Brother/POAVitor Living Arrangements: Lives alone in one-story condo w/no steps to enter. Indep @ baseline. FriendMeghan, will be staying w/pt to assist her as needed. Transportation:?Pt states drives self and states no transportation concerns at this time.?FriendMeghan, will take pt home @ d/c. DME: States has the following DME:?shower chair, BSC, grab bars, walker, CPAP, polar care ?Pt states no need for further DME at this time.? HHC/SNF: No hx of either. No needs identified. Pt states she is scheduled @ [facility] 05/24 @ 1 PM to begin OP therapy. Pt wishes to return home and states has no concerns with going home at time of discharge. Pt voices no further concerns/needs at this time.? TONG form explained re: Observation status for treatment of right total knee replacement.? Explained hospitalization will be paid per?her insurance policy for Outpatient billing?and condition will continue to be evaluated for Inpt necessity. Also let pt know that [facility] sends paper in the billing packet with their phone number if questions arise. Pt verbalizes understanding and does not have further questions. ?Form signed, copy made and placed in chart, and original given to pt. PLAN:??Home w/OP Therapy @ [facility]. [place] BSN?RN?CM
== END 2022-05-23 11:55 | disposition home or self-care (01) ==
LOC: SDC 16:58 → MS3 16:58
PROVIDERS: Anesthesiology; Internal Medicine; Admitting Provider Specialist; PCP Family Medicine Geriatric Medicine; Referring Provider Specialist; Visit Provider Specialist
PROC: 0SRC0JZ Replacement of Right Knee Joint with Synthetic Substitute, Open Approach (ICD-10-PCS; CPT 27447; principal; 2022-05-22 11:30)
DX: M17.11 Unilateral primary osteoarthritis, right knee (principal); I27.20 Pulmonary hypertension, unspecified; I48.0 Paroxysmal atrial fibrillation; Z68.41 Body mass index [BMI] 40.0-44.9, adult; E66.01 Morbid (severe) obesity due to excess calories; M21.162 Varus deformity, not elsewhere classified, left knee; Z79.891 Long term (current) use of opiate analgesic; M21.161 Varus deformity, not elsewhere classified, right knee; Z87.891 Personal history of nicotine dependence; Z79.01 Long term (current) use of anticoagulants; I10 Essential (primary) hypertension; E03.9 Hypothyroidism, unspecified; E78.2 Mixed hyperlipidemia; G47.33 Obstructive sleep apnea (adult) (pediatric); F32.A Depression, unspecified; Z79.899 Other long term (current) drug therapy; Z79.890 Hormone replacement therapy
CPT/HCPCS: 27447; S2900; 01402; 64447; 36415; 73560; 80048; 82040; 82962; 83036; 83735; 84443; 85025; 85027; 87081; 88305; 88311; 94668; 96365; 96366; 96375; 97162; 97166; 99221; 99252; C1776; J7120; A4216; G0378; G0463; J2405

== ENCOUNTER → 2022-11-20 | Outpatient (CLI) | payer MEDICARE, SELFPAY ==
[2022-11-20 14:37] LABS: Absolute Lymphocyte Count 2.85 X10^3/uL (0.83-4.51); Basophil# 0.06 X10^3/uL; Basophil% 0.7 % (0-1); Eosinophil# 0.22 X10^3/uL; Eosinophils% 2.5 % (0-5); Hematocrit 45.3 % (37-47); Hemoglobin 15.2 g/dL (12.0-15.0); Lymphocyte # 2.85 X10^3/ul (0.83-4.51); Lymphocyte % 32.2 % (19-41); Mean Corp Hgb Conc 33.6 g/dL (32-36); Mean Corpuscular Hgb 31.3 pg (27.0-32.0); Mean Corpuscular Volume 93.2 fL (81-99); Mean Platelet Vol. 11.2 fl (6.2-12.0); Monocyte# 0.66 X10^3/uL; Monocyte% 7.4 % (0-10); NRBC Flagged by Analyzer 0 % (0-5); Neutrophil # 5.03 X10^3/uL (2.7-7.7); Neutrophil % 56.7 % (47-70); Platelet Count 277 K/mm3 (150-450); RBC Distribution Width SD 44.7 fl (35.1-43.9); Red Blood Count 4.86 M/mm3 (4.2-5.4); White Blood Count 8.9 K/mm3 (4.4-11.0)
[2022-11-20 14:56] LABS: Vitamin D,25 Hydroxy 49.2 ng/mL
[2022-11-20 15:08] LABS: AST(SGOT) 14 U/L (15-37); Alanine Aminotransfer ALT/SGPT 37 U/L (13-56); Albumin, Serum 3.8 g/dL (3.2-5.0); Alkaline Phosphatase 58 U/L (45-117); Anion Gap 8 (5-15); BUN 19 mg/dL (7-18); BUN/Creat Ratio 20.8 RATIO (10-20); Calcium,Total 9.2 mg/dL (8.5-10.1); Chloride 104 mmol/L (98-107); Creatinine, Serum 0.92 mg/dL (0.55-1.02); EST Glomerular Filtration Rate 65 mL/min (>60); Est Glom Filt Rate - Afr Amer 79 mL/min (>60); Globulin 3.7 g/dL (2.2-4.2); Glucose 126 mg/dL (74-106); Potassium 3.7 mmol/L (3.5-5.1); Protein, Total 7.5 g/dL (6.4-8.2); Sodium Level 137 mmol/L (136-145); Thyroid Stim Hormone (TSH) 2.95 uIU/mL (0.358-3.74)
== END | disposition home or self-care (01) ==
LOC: POLAB3 13:27
PROVIDERS: PCP Family Medicine Geriatric Medicine; Visit Provider Family Medicine Geriatric Medicine
DX: I10 Essential (primary) hypertension (principal); E55.9 Vitamin D deficiency, unspecified
CPT/HCPCS: 36415; 80053; 82306; 84443; 85025

== ENCOUNTER 2023-05-08 11:00 | Outpatient (CLI) | payer MEDICARE, SELFPAY ==
[2023-05-09 13:53] LABS: Absolute Lymphocyte Count 2.69 X10^3/uL (0.83-4.51); Absolute Neutrophil Count 5.1 X10^3/uL (2.0-7.7); Basophil# 0.09 X10^3/uL; Eosinophil# 0.19 X10^3/uL; Eosinophils% 2.2 % (0-5); Hematocrit 47.8 % (37-47); Hemoglobin 15.6 g/dL (12.0-15.0); Lymphocyte # 2.69 X10^3/ul (0.83-4.51); Lymphocyte % 31.1 % (19-41); Mean Corp Hgb Conc 32.6 g/dL (32-36); Mean Corpuscular Hgb 29.9 pg (27.0-32.0); Mean Corpuscular Volume 91.6 fL (81-99); Mean Platelet Vol. 10.6 fl (6.2-12.0); Monocyte# 0.61 X10^3/uL; Monocyte% 7.1 % (0-10); NRBC Flagged by Analyzer 0 % (0-5); Neutrophil # 5.05 X10^3/uL (2.7-7.7); Neutrophil % 58.4 % (47-70); Platelet Count 317 K/mm3 (150-450); RBC Distribution Width CV 12.8 % (11.6-14.6); RBC Distribution Width SD 42.6 fl (35.1-43.9); Red Blood Count 5.22 M/mm3 (4.2-5.4); White Blood Count 8.7 K/mm3 (4.4-11.0)
[2023-05-09 14:20] LABS: Albumin, Serum 3.8 g/dL (3.2-5.0); Anion Gap 7 (5-15); BUN 26 mg/dL (7-18); BUN/Creat Ratio 25.2 RATIO (10-20); Calcium,Total 9.4 mg/dL (8.5-10.1); Chloride 107 mmol/L (98-107); Creatinine, Serum 1.03 mg/dL (0.55-1.02); EST Glomerular Filtration Rate 57 mL/min (>60); Est Glom Filt Rate - Afr Amer 69 mL/min (>60); Glucose 115 mg/dL (74-106); Potassium 4.1 mmol/L (3.5-5.1); Sodium Level 137 mmol/L (136-145)
[2023-05-09 14:30] LABS: Magnesium 2.1 mg/dL (1.6-2.6); Thyroid Stim Hormone (TSH) 2.01 uIU/mL (0.358-3.74)
== END 2023-05-08 19:00 | disposition home or self-care (01) ==
LOC: SDC 12-22 09:25
PROVIDERS: Anesthesiology; PCP Family Medicine Geriatric Medicine; Referring Provider Specialist; Visit Provider Specialist
DX: Z01.818 Encounter for other preprocedural examination (principal)
CPT/HCPCS: 36415; 80048; 82040; 83735; 84443; 85025; 87081

== ENCOUNTER → 2023-05-13 | Outpatient (CLI) | payer MEDICARE, SELFPAY ==
--- NOTE | 2023-05-13 14:15 | CT_ITS ---
CT LEFT LOWER EXTREMITY WITH 3-D IMAGING CLINICAL INDICATION: KNEE PAIN TECHNIQUE: Axial CT images of the left lower extremity (including left hip, left knee, and left ankle) was performed without IV contrast material. Coronal and sagittal reformats were provided. RADIATION DOSAGE (If Supplied By Facility): CTDIvol = ( 18.92 ) mGy, DLP = ( 1448.43 ) mGycm COMPARISON: No relevant prior comparison study available. FINDINGS: Bones: Normal left hip joint. There is moderate to severe degenerative arthrosis of the medial femorotibial compartment of the left knee with joint space narrowing, marginal osteophyte formation, and subchondral sclerosis. There is mild degenerative arthrosis of the patellofemoral and lateral femorotibial compartments of the left knee with mild marginal osteophyte formation. There are small plantar and posterior calcaneal spurs. Osseous structures are intact without evidence of fracture or dislocation. No lytic or blastic osseous masses. Soft Tissues: There is chronic sigmoid diverticulosis without acute diverticulitis. There is a small left knee joint effusion. The deep soft tissue structures are otherwise unremarkable. The superficial soft tissues are unremarkable without evidence of edema, hematoma, or foreign body. CT/Extremity Lower without Contra IMPRESSION: Tricompartment degenerative arthrosis of the left knee, most severe in the medial femorotibial compartment. Small left knee joint effusion. Electronically Signed: Cali Dumont MD at 15:11 EDT ,
== END | disposition home or self-care (01) ==
PROVIDERS: PCP Family Medicine Geriatric Medicine; Referring Provider Specialist; Visit Provider Specialist
DX: M21.162 Varus deformity, not elsewhere classified, left knee (principal)
CPT/HCPCS: 73700

== ENCOUNTER → 2023-05-22 | Outpatient (CLI) | payer MEDICARE, SELFPAY ==
[2023-05-22 14:12] LABS: Absolute Lymphocyte Count 2.65 X10^3/uL (0.83-4.51); Absolute Neutrophil Count 4.9 X10^3/uL (2.0-7.7); Basophil# 0.07 X10^3/uL; Basophil% 0.8 % (0-1); Eosinophil# 0.21 X10^3/uL; Eosinophils% 2.5 % (0-5); Hematocrit 46.7 % (37-47); Hemoglobin 15.7 g/dL (12.0-15.0); Lymphocyte # 2.65 X10^3/ul (0.83-4.51); Lymphocyte % 31.3 % (19-41); Mean Corp Hgb Conc 33.6 g/dL (32-36); Mean Corpuscular Hgb 30.8 pg (27.0-32.0); Mean Corpuscular Volume 91.7 fL (81-99); Mean Platelet Vol. 10.7 fl (6.2-12.0); Monocyte# 0.64 X10^3/uL; Monocyte% 7.6 % (0-10); NRBC Flagged by Analyzer 0 % (0-5); Neutrophil # 4.88 X10^3/uL (2.7-7.7); Neutrophil % 57.7 % (47-70); Platelet Count 282 K/mm3 (150-450); RBC Distribution Width CV 12.6 % (11.6-14.6); RBC Distribution Width SD 42.8 fl (35.1-43.9); Red Blood Count 5.09 M/mm3 (4.2-5.4); White Blood Count 8.5 K/mm3 (4.4-11.0)
[2023-05-22 15:56] LABS: Vitamin D,25 Hydroxy 58.1 ng/mL
[2023-05-22 16:32] LABS: AST(SGOT) 17 U/L (15-37); Alanine Aminotransfer ALT/SGPT 24 U/L (13-56); Albumin, Serum 3.7 g/dL (3.2-5.0); Alkaline Phosphatase 62 U/L (45-117); Anion Gap 9 (5-15); BUN 23 mg/dL (7-18); BUN/Creat Ratio 23.1 RATIO (10-20); Calcium,Total 9.1 mg/dL (8.5-10.1); Chloride 107 mmol/L (98-107); EST Glomerular Filtration Rate 59 mL/min (>60); Est Glom Filt Rate - Afr Amer 71 mL/min (>60); Globulin 3.7 g/dL (2.2-4.2); Glucose 114 mg/dL (74-106); Potassium 3.9 mmol/L (3.5-5.1); Protein, Total 7.4 g/dL (6.4-8.2); Sodium Level 137 mmol/L (136-145); Thyroid Stim Hormone (TSH) 1.81 uIU/mL (0.358-3.74)
== END | disposition home or self-care (01) ==
LOC: POLAB3 13:37
PROVIDERS: PCP Family Medicine Geriatric Medicine; Visit Provider Family Medicine Geriatric Medicine
DX: I10 Essential (primary) hypertension (principal); E55.9 Vitamin D deficiency, unspecified
CPT/HCPCS: 36415; 80053; 82306; 84443; 85025

== ENCOUNTER → 2023-05-29 | Outpatient (CLI) | payer MEDICARE, SELFPAY ==
--- NOTE | 2023-05-29 12:08 | STRESSREP ---
Stress Test Report Pharmacologic myocardial perfusion stress test. 67-year-old lady for preoperative evaluation Resting EKG demonstrates atrial fibrillation with a rate of 111 bpm. Resting blood pressure is 110/60 mmHg. 0.4 mg of regadenoson was infused per usual protocol followed by rapid intravenous saline flush injection. Continuous EKG monitoring was performed. The maximum heart rate was 133 bpm which was 85% of max impacted heart rate the maximum workload was 1 metabolic equivalent. At rest there were no ST or T wave changes noted to suggest ischemia and at peak infusion nonspecific ST changes were noted which did not meet the criteria for ischemia. No clinical angina is noted. The final blood pressure was 108/60 mmHg. Myocardial perfusion protocol. 14.1 mCi of technetium 99m sestamibi was injected at rest. 0.4 mg of regadenoson was infused per usual protocol. At peak infusion 44.8 mCi of technetium 99m sestamibi was injected stress images were obtained stress and rest images were reconstructed and compared in the short axis vertical long and horizontal long axis. Gated images were also obtained. Perfusion SPECT analysis: Review of the stress images demonstrate normal uptake of tracer noted in all areas of the myocardium except for the apex with mildly reduced perfusion. The resting images similar demonstrated normal uptake of tracer noted in all areas of the myocardium. The above is suggestive of mild apical ischemia. Gated SPECT analysis: The gated ejection fraction is 54%. Conclusion: Abnormal pharmacologic myocardial perfusion stress test. Preserved ejection fraction. Mild apical ischemia present
== END | disposition home or self-care (01) ==
LOC: CVS 06:09
PROVIDERS: PCP Family Medicine Geriatric Medicine; Referring Provider Nurse Practitioner Gerontology; Visit Provider Nurse Practitioner Gerontology
DX: Z01.810 Encounter for preprocedural cardiovascular examination (principal); I48.91 Unspecified atrial fibrillation; I25.89 Other forms of chronic ischemic heart disease
CPT/HCPCS: 78452; 93017; A9500; A4216; J2785

== ENCOUNTER 2023-06-23 06:46 | Day surgery (SDC) | payer MEDICARE, SELFPAY ==
--- NOTE | 2023-06-17 16:00 | PCM.HP.BLA ---
History and Physical Date of Admission: 06/23/23 Elham Willams is a 67-year-old white female who presents today for a diagnostic heart cath. She has a history of atrial fibrillation, hyperlipidemia, and hypertension. As you recall, she had previously been evaluated by Siddhartha Andrade MD, of electrophysiology at [facility] in [place], [place]. This was for her underlying history of atrial fibrillation. It appears she underwent evaluation with a transesophageal echocardiogram that reportedly demonstrated overall preserved LV systolic function/LVEF and no intracardiac thrombus. She was treated medically which included rate control therapy, anti-rhythmic therapy initially with Multaq which she failed and was separately changed to amiodarone therapy, as well as anticoagulant therapy with apixaban. She subsequently underwent synchronized biphasic DC cardioversion on 12/05/2016 and regained sinus rhythm. Her amiodarone was discontinued due to elevated liver enzymes. She also has a history of AIRAM with CPAP therapy. She did undergo a pharmacologic nuclear stress test which demonstrated mild apical ischemia. This stress test was done for preoperative clearance. 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 Low iron Mixed hyperlipidemia AIRAM on CPAP Paroxysmal atrial fibrillation Post-menopausal Preoperative cardiovascular examination Pulmonary hypertension Thyroid disease Wears contact lenses Surgical History History of right knee joint replacement History of tonsillectomy Family History Mother Hypertension Father Pulmonary hypertension Social History Smoking Status: Former smoker Tobacco: How many years used: 12 how long ago did patient quit smokinmonths second hand exposure: No alcohol intake: current details: occasional substance use type: does not use caffeine: Yes Type: coffee Number of servings: 2 ROS Const Const: Negative for fatigue, weakness, fever(s), headache(s), chills, frequent falls, weight gain or weight loss Eyes Eyes: Negative for blind spots, loss of peripheral vision, transient loss of vision, blurry vision, change in vision, double vision, floaters or tunnel vision ENT ENT: Negative for headache(s), dizziness, Nosebleed/epistaxis, balance problems or neck pain Cardio Chest Pain: No Palpitations: No Edema: None Muscle aches with walking: None Resp Respiratory: Negative for SOB with activity, SOB at rest or SOB orthopnea\SOB lying down GI GI: Negative nausea, vomiting, heartburn, bloating, vomiting blood/hematemesis, bright, red blood in stools or black,tarry stools Musc Musc: Negative for muscle aches/ myalgia, muscle weakness, joint pain or balance problems Neuro Neuro: Negative for dizziness, lightheadedness, near syncope, syncope, orthostatic symptoms, frequent falls, headache(s), weakness, blurry vision or double vision William Hematologic/Lymphatic: Negative for easy bleeding or easy bruising Endo Endo: Negative for fatigue Cardiology Exam Const Appearance: cooperative, healthy appearing, comfortable, no acute distress, well developed and well groomed Nutritional Appearance: obese Orientation: alert, awake and oriented x3 Head Head: normal to inspection, normocephalic and atraumatic Ears: hearing grossly normal bilaterally Nose: external nose normal Face and Sinus: face symmetric Eyes Eyelids: eyelids normal Conjunctivae: conjunctivae normal Pupils: PERRL and pupil size EOM: EOM intact bilaterally Neck Neck: normal visual inspection and full ROM Carotids: normal carotid upstroke; Negative bruit Chest Chest inspection: normal inspection of the chest, symmetric chest movement and normal respiratory effort Auscultation: Bilateral: Clear to Auscultation Cardio Palpation: normal PMI Rate: tachycardic Rhythm: irregularly irregular Heart sounds: S1 normal and S2 normal; Negative rub, gallop or murmur GI GI: normal to inspection, soft and obese Neuro General: patient alert, patient awake, patient oriented x3 and moves all extremities Skin Skin: no rashes or lesions noted Extremities Pulses: Normal: Right Posterior Tibial Pulse, Left Posterior Tibial Pulse, Right Radial Pulse and Left Radial Pulse Lower Extremity Edema: None: Bilateral Psych Psychological: normal affect Assessment & Plan Assessment/Plan (1) Abnormal stress test: (2) Preoperative cardiovascular examination: PLAN: Plan Patient will undergo diagnostic heart catheterization for abnormal stress test. Cardiac clearance will be based upon findings.
[2023-06-23 07:09] VITALS: BMI 41.7
--- NOTE | 2023-06-25 09:05 | CL.D_ITS ---
Patient Name: YORDY HAN Study Date: 06/23/2023 Performing: Chun Otero MD Ht: 62 inches 157.48 cm : 1955 Wt: 228 lbs 103.42 kg Age: 67 Gender: female BSA: 2.02 PROCEDURE(S) PERFORMED DC01-(90060)LHC/COR/LV CLINICAL PROFILE AND INDICATIONS Indications: Suspected CAD Heart Failure: None Stress/Imaging Date: 05/29/23Stress Test with SPECT MPI: Positive Low Risk CAD Presentations: Symptom unlikely to be ischemic. CONCLUSIONS Non obstructive coronary arteries Normal LV size, wall motion,and systolic function RECOMMENDATIONS Medical therapy Would recommend better rate control for her atrial fibrillation and then to consider repeat ablation DESCRIPTION OF PROCEDURE The patient arrived to the procedure lab. The risks and benefits of the procedure as well as a full description of our services here and current unavailability of surgical backup were fully explained to the patient and/or their significant other prior to the catheterization. The Timeout was completed, verifying the correct patient and procedure. The patient's procedural site was prepped and draped in the usual fashion. Local anesthetic was given subcutaneously to right radial region with Lidocaine 2%. Using a modified Seldinger technique, arterial access was obtained via the right radial artery, a 6Fr sheath was inserted. Right Coronary Artery selective angiography was then performed in multiple views using a 5 Fr. 4.0 Alpha catheter. Left Coronary Artery selective angiography was performed in multiple views using a 5 Fr. 4.0 Alpha catheter. Left Ventriculography was performed in GARZA projection using a 5 Fr. Pigtail catheter. LV to AO pullback pressures were then recorded.The arterial sheath was pulled and a TR Band was applied for hemostasis CORONARY ANGIOGRAPHY DOMINANCE: Co- Dominant LEFT HEART ASSESSMENT Left Ventricular Ejection Fraction: by LV Gram 60 % Normal LV wall motion Normal Left Ventricular systolic function LEFT MAIN: Angiographically normal LEFT ANTERIOR DESCENDING ARTERY: Mild luminal irregularities less than 30% CIRCUMFLEX ARTERY: Mild luminal irregularities RIGHT CORONARY ARTERY: Mild luminal irregularities less than 30% COMPLICATIONS No Complications PROCEDURE MEDICATIONS Versed 1 mg IV Fentanyl 50 mcg IV Versed 1 mg IV Oxygen: 2 L/min via nasal cannula Aspirin (325mg) 1 Tabs PO @ 06/23/2023 07:14:22 Heparin given IA 06/23/2023 08:23:36 Verapamil 2.5mg, Ntg 100mcgs, 3000 units of Heparin given IA 06/23/2023 08:23:36 SUMMARY OF HEMODYNAMIC DATA Time AIR REST ECG 07:17:30 Art 86/55 (66) 08:25:45 AO 138/85 (104) SA 08:45:39 LV 118/13, 17 08:51:57 LV 124/15, 20 08:52:04 LV 117/25, 49 08:52:46 LVp 111/14, 26 08:52:53 AOp 122/75 (97) 08:52:58 AIR REST 09:08:59 AIR REST ECG 09:42:20 Signed By Chun Otero MD On 06/25/2023 09:05:07 Chun Otero MD
== END 2023-06-23 10:50 | disposition home or self-care (01) ==
PROVIDERS: PCP Family Medicine Geriatric Medicine; Referring Provider Internal Medicine Cardiovascular Disease; Visit Provider Internal Medicine Cardiovascular Disease
DX: Z01.810 Encounter for preprocedural cardiovascular examination (principal); R94.39 Abnormal result of other cardiovascular function study; I10 Essential (primary) hypertension; E78.2 Mixed hyperlipidemia; Z79.899 Other long term (current) drug therapy; Z87.891 Personal history of nicotine dependence
CPT/HCPCS: 93458; 99152; 99153; J7040; Q9967; C1769; C1894

== ENCOUNTER → 2023-09-11 | Outpatient (CLI) | payer MEDICARE, SELFPAY ==
[2023-09-11 11:54] LABS: Absolute Lymphocyte Count 2.23 X10^3/uL (0.83-4.51); Absolute Neutrophil Count 5.6 X10^3/uL (2.0-7.7); Basophil# 0.08 X10^3/uL; Basophil% 0.9 % (0-1); Eosinophil# 0.25 X10^3/uL; Eosinophils% 2.8 % (0-5); Hematocrit 46.8 % (37-47); Hemoglobin 15.5 g/dL (12.0-15.0); Lymphocyte # 2.23 X10^3/ul (0.83-4.51); Lymphocyte % 25.3 % (19-41); Mean Corp Hgb Conc 33.1 g/dL (32-36); Mean Corpuscular Hgb 30.3 pg (27.0-32.0); Mean Corpuscular Volume 91.6 fL (81-99); Mean Platelet Vol. 10.6 fl (6.2-12.0); Monocyte# 0.58 X10^3/uL; Monocyte% 6.6 % (0-10); NRBC Flagged by Analyzer 0 % (0-5); Neutrophil # 5.64 X10^3/uL (2.7-7.7); Neutrophil % 64.2 % (47-70); Platelet Count 243 K/mm3 (150-450); RBC Distribution Width CV 13.2 % (11.6-14.6); RBC Distribution Width SD 44.4 fl (35.1-43.9); Red Blood Count 5.11 M/mm3 (4.2-5.4); White Blood Count 8.8 K/mm3 (4.4-11.0)
[2023-09-11 12:11] LABS: Albumin, Serum 3.3 g/dL (3.2-5.0); Anion Gap 7 (5-15); BUN 22 mg/dL (7-18); BUN/Creat Ratio 16.7 RATIO (10-20); Chloride 107 mmol/L (98-107); Creatinine, Serum 1.32 mg/dL (0.55-1.02); EST Glomerular Filtration Rate 43 mL/min (>60); Est Glom Filt Rate - Afr Amer 52 mL/min (>60); Glucose 120 mg/dL (74-106); Potassium 4.2 mmol/L (3.5-5.1); Sodium Level 140 mmol/L (136-145)
[2023-09-11 12:22] LABS: Magnesium 1.9 mg/dL (1.6-2.6); Thyroid Stim Hormone (TSH) 1.76 uIU/mL (0.358-3.74)
== END | disposition home or self-care (01) ==
LOC: LAB 11:09
PROVIDERS: Anesthesiology; PCP Family Medicine Geriatric Medicine; Referring Provider Specialist; Visit Provider Specialist
DX: Z01.818 Encounter for other preprocedural examination (principal)
CPT/HCPCS: 36415; 80048; 82040; 83735; 84443; 85025; 87081

== ENCOUNTER 2023-09-29 06:52 | Observation (INO) | payer MEDICARE, SELFPAY ==
--- NOTE | 2023-09-23 21:02 | PCM.HP.BLA ---
History and Physical History and Physical Patient Name: Elham Willams : 1955From:? DIAMOND CERVANTES PA-C DATE OF PRE-OPERATIVE EXAM: 09/22/2023 DATE OF SURGERY:? 09/29/2023 SCHEDULED PROCEDURE:? Robotic-assisted left total knee arthroplasty HISTORY OF PRESENT ILLNESS: Preoperative history and physical exam was performed on September 22, 2023.? This is a 67-year-old female who is initially to have surgery on the left knee in May 2023.? Patient was ultimately referred to cardiology per primary care physician for appropriate workup.? Patient has had stress test and has recently been cleared from the [facility] to proceed forward with surgery.? She has also obtained recent clearance from her primary care provider Dr. Aranda.? Patient has continued to have bilateral knee pain.? Her pain has been ongoing for the past several years.? She has had a previous right total knee arthroplasty by Dr. Siddhartha Hope on May 22, 2022.? She is still complaining of left knee pain.? Her pain has been constant and aching.? Pain is increased with walking, going up and down stairs and sitting for extended periods of time.? She has difficulty with activities of daily living that require any walking.? Patient's pain is located over the medial aspect of the knee.? Patient has tried conservative measures including Tylenol without relief.? She denies past history of surgery on the left knee.? Patient has medical history pertinent for atrial fibrillation currently on Eliquis, depression, hypertension, sleep apnea with use of CPAP.? She has no listed chronic kidney disease however her kidney function is elevated and GFR decrease.? Patient denies past history of DVT or pulmonary embolism.? No recent chest pain, shortness of breath, fevers chills or recent infections.? After failing conservative measures and discussing all treatment options with Dr. Siddhartha Hope, the patient does wish to proceed with a left total knee arthroplasty. REVIEW OF SYSTEMS: Review Of Systems: Constitutional: Reports weight change, but denies change in appetite and fever. Cardiovasular: Reports irregular heartbeat, but denies chest pain and heart murmur. Respiratory: Denies cough, pneumonia, shortness of breath, tuberculosis and wheezing. Gastrointestinal: Denies constipation, diarrhea, heartburn, nausea, rectal itching, bloody stools and vomiting. Musculoskeletal: Reports pain, but denies gait disturbance, leg swelling, trouble walking and weakness. Skin: Denies Raynaud's, history of shingles and tattoo. Neurological: Denies ambulatory dysfunction, dizziness, numbness/tingling and tremor. Psychiatric: Denies anxiety, insomnia and stress. Hematologic/Lymphatic: Denies anemia, bleeding/bruising tendency and past transfusion. Reviewed, no changes. PAST MEDICAL HISTORY: Advance Care Plan: Other Directive, POA Effective Date: 01/28/2022 Other Directive, LIVING WILL Effective Date: 01/28/2022 Past Medical History: Medical Problems: Arthritis, Depression, High Blood Pressure, Sleep Apnea, A-Fib Accidents: Fracture - LT ARM / [place] Surgical Hx: Tonsillectomy - (1985) [facility] Right Total Knee Replacement - (05/22/2022) DR. HOPE @ [facility] Anesthesia Complications: None Assistive Devices: Cpap, Glasses - READING Reviewed, no changes. SOCIAL HISTORY: Social History: Marital: .Occupation: Retired.Work Status: Retired.Hand Dominance: Right-handed. Personal Habits:? Cigarette Use: Former.Smokeless Tobacco: Never Used Smokeless Tobacco.E-Cigarette Use: Never used.Alcohol: Occasionally.Drug Use: Denies Use.Enjoy Exercising: Never Exercises. Reviewed, no changes. VITALS: Ht: 63 Wt: 230lb Wt k.328 BMI: 40.7 BP: 132/72 Pulse: 118 Resp: 16 T: 97.2 T: 36.2C Pain Level: 5 O2SatR: 98 ALLERGIES: Sulfa MEDICATIONS: Vitamin D3 250 mcg (10102 Ut) daily, Metoprolol Tartrate 50 mg twice a day, Eliquis 5 mg 1po bid, Hydrochlorothiazide 12.5 mg 1 by mouth every day, Losartan Potassium 100 mg 1 by mouth every day, Amlodipine Besylate 5 mg 1 by mouth every day, Levothyroxine Sodium 50 mcg 1 by mouth every day PRE-OP EXAM: General appearance:NORMAL? Other: Eyes: Conjunctivae and lids: NORMAL? Pupils: ERR Ears, Nose, Mouth, and Throat: NORMAL? Other: Inspection of lips, teeth and gums: NORMAL?? Other: Neck: Examination of neck: no masses noted. Respiratory: Assessment of respiratory effort: NORMAL?? Other: ? Auscultation of lungs: clear to auscultation no wheezes, rhonchi or rales. Cardiovascular:? Auscultation of heart: Irregular irregular rhythm consistent with atrial fibrillation PHYSICAL EXAMINATION: Patient currently walks with an antalgic gait.? On exam of the left knee there is no erythema or signs of infection.? Patient has moderate effusion with the left knee.? She has varus alignment which is correctable on exam.? Range of motion: 0 extension to 113 flexion.? Tenderness to palpation along the medial joint line.? Sensation intact to light touch. IMAGING STUDIES: Previous x-rays of the left knee reveal varus alignment with medial joint space narrowing, subchondral sclerosis, osteophyte formation consistent with severe stage IV bone on bone erosive osteoarthritis.? Right knee implants are stable with no evidence of loosening or lucencies. IMPRESSION: 1.? Severe left knee osteoarthritis with varus deformity 2.? Presence of right total knee arthroplasty: May 22, 2022 3.? Hypertension 4.? Persistent atrial fibrillation: Currently on Eliquis 5.? Depression 6.? Sleep apnea with use of CPAP 7.? Elevated kidney function without diagnosis of chronic kidney disease 8.? Morbid obesity with BMI 40.7 PLAN: Dr. Siddhartha Hope did discuss and review with the patient all treatment options including surgical versus nonsurgical options.? Patient does wish to proceed with the above-stated procedure.? Potential risks, benefits, and complications of the procedure were discussed in detail including but not limited to , infection, nerve and blood vessel damage, persistent pain, numbness, tingling, paresthesias, blood clot, pulmonary embolism, and requirement for possible further surgery.? The patient expressed full understanding and has no further questions for the doctor.? Patient does agree to proceed with the above-stated procedure and has signed the surgery consent form. POST-OP MEDICATION PLAN: Pain Medications:? Postoperative pain regimen will be initiated by Dr. Siddhartha Hope in the hospital.? Due to her morbid obesity she will be placed on doxycycline postoperatively for 2 weeks.? We discussed side effects which includes hypersensitivity to the sun and she should take appropriate precautions.? Also recommended [id number] probiotic while on the antibiotic.? Patient voiced understanding.? She will bring her walker and CPAP to the hospital.? Plan will be to avoid any perioperative nonsteroidal anti-inflammatories. DVT Prophylaxis: Patient has been instructed to stop the Eliquis 2 days prior to surgery.? Eliquis 5 mg twice daily will be restarted on postoperative day #1. This dictation was created using voice recognition software. Phonetic and/or grammatical errors may exist. ___? I have re-examined the patient.? There are no clinical changes since date of exam. ___? See progress notes for changes. ___? Dictated on admission Date: ? Time: Signature:
[2023-09-29] VITALS (20 sets, daily range): BP systolic 106–149; BP diastolic 60–93; PULSE 98–148; RESP 14–18; TEMP 36.1–36.8; O2SAT 88–98; BMI 40.3
[2023-09-29] MEDS: Magnesium 2 GM for ERAS IV (06:28)
[2023-09-29] MEDS: Lactated Ringers 1,000 ML 999 ML IV ×2 (06:28→09:30)
[2023-09-29 06:32] LABS: Bedside Glucose 138 mg/dL (74-106)
[2023-09-29] MEDS: Acetaminophen 500 MG Tablet 1000 MG PO ×3 (06:39→21:48)
[2023-09-29] MEDS: Gabapentin 600 MG Tablet PO (06:39)
--- NOTE | 2023-09-29 07:28 | PRE.ANES_ITS ---
ASA Classification* ASA Classification ASA Classification: 3 Assessment & Plan Anesthesia* Anesthesia Assessment Anesthesia Assessment: Discussed sedation and/or anesthesia options, risks, benefits, and alternatives with patient/parents/legal guardian/POA. Questions invited. The patient/parents/legal guardian/POA seems to understand and agrees to proceed with anesthesia plan. Reviewed the physical assessment, medical history, allergy history and patient home medications list prior to surgery/procedure/anesthetic and documented any changes. Performed airway and anesthesia risk assessments. Anesthesia Type Anesthesia Type: General (*see written pre anesthesia record for full assessment) Anesthesia Focused Assessment* Temperature: 97.5 F Pulse Rate: 148 Blood Pressure: 113/88 Respiratory Rate: 16 Pulse Ox: 98 Airway Assessment Mouth opens: >3 cm Mallampati Score: II Focused Labs Anesthesia Preop lab: CBC WBC 8.8 K/mm3 (4.4-11.0) 09/11/23 11:24 RBC 5.11 M/mm3 (4.2-5.4) 09/11/23 11:24 Hgb 15.5 g/dL (12.0-15.0) H 09/11/23 11:24 Hct 46.8 % (37-47) 09/11/23 11:24 Plt Count 243 K/mm3 (150-450) 09/11/23 11:24 CHEMISTRY Potassium 4.2 mmol/L (3.5-5.1) 09/11/23 11:24 Sodium 140 mmol/L (136-145) 09/11/23 11:24 Magnesium 1.9 mg/dL (1.6-2.6) 09/11/23 11:24 BUN 22 mg/dL (7-18) H 09/11/23 11:24 Creatinine 1.32 mg/dL (0.55-1.02) H 09/11/23 11:24 Glucose 120 mg/dL (74-106) H 09/11/23 11:24 POC Glucose 138 mg/dL (74-106) H 09/29/23 06:11 TSH 1.76 uIU/mL (0.358-3.74) 09/11/23 11:24 COAG PT 20.2 SECONDS (11.7-14.9) H 12/29/19 08:05 Pre-Assessment Diagnosis/Proposed Procedure Planned Operative Procedure(s): robotic assisted left total knee arthroplasty Anesthesia History Anesthesia History - soldering machine feeder: Anesthesia History - soldering machine feeder Hx Hospitalization No 09/08/23 08:48 Any Problems With Anesthesia No 09/08/23 08:48 Cholinesterase deficiency No 09/08/23 08:48 You/Your Family Experience No 09/08/23 08:48 fever (hyperthermia) with Relationship Recent Exposure to Contagious No 09/29/23 06:30 Disease Does patient have nerve No 09/08/23 08:48 stimulator Patient instructed to have device shut off --Does patient have Pacemaker No 09/29/23 06:30 or ICD? When Was Last Pacemaker Check QUESTION #4 FULL TEXT: You/Your Family Experience fever (hyperthermia) with Anesthesia Last Oral Intake Last Oral intake: Last Oral Intake NPO since 19:30 09/29/23 06:30 Meds taken in AM with sips of Yes 09/29/23 06:30 water? Meds patient instructed to diltiazem, losartan, 09/29/23 06:30 take am of surgery metoprolol, levothyroxine PONV PONV - soldering machine feeder: PONV - soldering machine feeder Female Yes 09/08/23 08:48 HX of Motion Sickness No 09/08/23 08:48 HX of N/V After Surgery No 09/08/23 08:48 Non-Smoker Yes 09/08/23 08:48 Duration of Surgery greater Yes 09/08/23 08:48 than 60 minutes Number of Risk Factors 3 09/08/23 08:48 PONV Score Moderate Risk 09/08/23 08:48 Height & Weight Height & Weight: Anesthesia: Height & Weight Height 5 ft 3 in 09/29/23 06:30 Weight: 103.3 kg 09/29/23 06:30 Body Mass Index (BMI) 40.3 09/29/23 06:30 Respiratory Assessment Respiratory Assessment - soldering machine feeder: Respiratory Tract Infection Hx - soldering machine feeder Hx Respiratory Tract Infection No 09/08/23 08:48 STOP Sleep Apnea STOP Sleep Apnea - soldering machine feeder: STOP Sleep Apnea - soldering machine feeder Hx Hypertension Yes: CONTROLLED WITH MEDS 09/08/23 08:48 Hx Sleep Apnea Yes 09/08/23 08:48 CPAP Yes 09/08/23 08:48 BIPAP No 09/08/23 08:48 Do you snore loudly (louder than talking or can be heard Do you often feel tired/ fatigued/ sleepy during daytime? Has anyone observed you stop breathing during sleep? STOP Results Positive 09/08/23 08:48 QUESTION #5 FULL TEXT : Do you snore loudly (louder than talking or can be heard through closed doors)? Tobacco Use History Tobacco Use History - soldering machine feeder: Tobacco Use History - soldering machine feeder Tobacco Use Smoking Status Former smoker 09/08/23 08:48 Hx Tobacco Use No 09/08/23 08:48 Years Smoking Packs Smoked per Day Smoking Cessation Date was Yes - quit smoking within 15 09/08/23 08:48 within the last 15 years years Hx Smoking Cessation Date 02/25/20 09/08/23 08:48 Hx Smoking Cessation No 09/08/23 08:48 Counseling Hematologic Medial History Hematologic Hx - soldering machine feeder: Hematologic Medical Hx - vice president of news Hx of Blood Transfusion No 09/08/23 08:48 Hx of Transfusion in last 3 No 09/08/23 08:48 Months Date of Last Transfusion (if within last 3 months) Ever experience any problems No 09/08/23 08:48 with transfusion(s)? Specify any problems Hx of Preganancy in last 3 No 09/08/23 08:48 Months Nurse Filling Out Transfusion DSCHRIBER 09/08/23 08:48 & Questions: Date: 09/08/23 09/08/23 08:48 Time: 09:08 09/08/23 08:48 Patient unable to answer at this time (ie. confused, unrespo /Reproduction History /Reproductive History - soldering machine feeder: /Reproductive Hx- soldering machine feeder Hx Now Gestational Age (in weeks): EDC: Hx Hx Para Hx Section SAB No 09/08/23 08:48 Active Medications Active Medications: Current Medications Generic Name Dose Route Start Last Admin Trade Name Freq PRN Reason Stop Dose Admin Acetaminophen 1,000 mg 09/29/23 07:30 09/29/23 06:39 Acetaminophen 500 Mg Tablet PO 09/29/23 07:31 1,000 mg X1 ONE Administration Acetaminophen 1,000 mg 09/29/23 14:00 Acetaminophen 500 Mg Tablet PO Q8 MITCHELL Apixaban 5 mg 09/30/23 05:00 Apixaban 5 Mg Tablet PO BID [facility] Tranexamic Acid 2,000 mg/ 0 mg 09/29/23 07:30 Sodium Chloride 100 ml OPERA.SITE 09/29/23 07:31 X1 ONE Sodium Chloride 78.4 ml/ 0 ml 09/29/23 07:30 Ropivacaine 200 mg/ IV 09/29/23 07:31 Epinephrine HCl 0.6 mg/ X1 ONE Morphine Sulfate 5 mg Dexamethasone Sodium Phosphate 10 mg 09/29/23 07:30 Dexamethasone 10 Mg/Ml Vial IV 09/29/23 07:31 X1 ONE Diltiazem HCl 120 mg 09/29/23 10:00 Diltiazem Cd 120 Mg Capsule PO DAILY [facility] Protocol Doxycycline Monohydrate 100 mg 09/30/23 13:00 Doxycycline 100 Mg Capsule PO BID [facility] Enteral Nutritional Formula 237 ml 09/29/23 08:00 Ensure Surgery 237 Ml Liquid PO TIDCM [facility] Famotidine 20 mg 09/29/23 10:00 Famotidine 20 Mg Tablet PO DAILY [facility] Gabapentin 600 mg 09/29/23 07:30 09/29/23 06:39 Gabapentin 600 Mg Tablet PO 09/29/23 07:31 600 mg X1 ONE Administration Hydrochlorothiazide 12.5 mg 09/29/23 10:00 Hydrochlorothiazide 12.5mg PO DAILY [facility] Protocol Lactated Ringer's 1,000 mls @ 999 mls/hr 09/29/23 07:30 09/29/23 06:28 IV 09/29/23 08:30 999 mls/hr .Q1H1M [facility]LL Administration Cefazolin Sodium 2 gm/ Sodium 110 mls @ 150 mls/hr 09/29/23 07:30 Chloride IV 09/29/23 08:13 PREOP ONE Lactated Ringer's 1,000 mls @ 999 mls/hr 09/29/23 07:30 IV 09/29/23 08:30 .Q1H1M [facility]LL Lactated Ringer's 1,000 mls @ 125 mls/hr 09/29/23 07:30 IV 09/29/23 15:29 .Q8H [facility] Lactated Ringer's 1,000 mls @ 75 mls/hr 09/29/23 07:30 IV 09/29/23 20:49 .[id number] [facility] Magnesium Sulfate 2 gm/ 104 mls @ 208 mls/hr 09/29/23 07:30 09/29/23 06:28 Dextrose IV 09/29/23 07:59 208 mls/hr X1 ONE Administration Cefazolin Sodium 1 gm in 50 mls @ 150 mls/hr 09/29/23 14:00 IV 09/29/23 22:19 Q8 [facility] Insulin Human Lispro 1 - 6 unit 09/29/23 07:30 Insulin Lispro 100 Unit/Ml Insuln.Pen SC 09/29/23 18:00 Q4H PRN PRN BG>/= 180, SEE PROTOCOL Protocol Ketorolac Tromethamine 15 mg 09/29/23 06:52 Ketorolac 15 Mg/Ml Vial IV 10/01/23 06:54 Q6H PRN PRN Pain Score 1-5 Levothyroxine Sodium 50 mcg 09/29/23 10:00 Levothyroxine 50 Mcg Tablet PO DAILY [facility] Losartan Potassium 100 mg 09/29/23 10:00 Losartan Potassium 100 Mg Tablet PO DAILY [facility] Protocol Metoprolol Tartrate 50 mg 09/29/23 10:00 Metoprolol Tartrate 50 Mg Tablet PO BID [facility] Protocol Morphine Sulfate 2 - 4 mg 09/29/23 06:52 Morphine 2 Mg/Ml Syringe IV Q2H PRN PRN Pain Score 6-10 Non-Formulary Medication 250 mcg 09/29/23 10:00 Cholecalciferol (Vitamin D3) PO DAILY [facility] Ondansetron HCl 4 mg 09/29/23 06:52 Ondansetron 4 Mg/2 Ml Vial IV Q8H PRN PRN NAUSEA Oxycodone HCl 5 - 10 mg 09/29/23 06:52 Oxycodone 5 Mg Tablet PO Q4H PRN PRN Pain Score 4-10 Promethazine HCl 12.5 mg 09/29/23 06:52 Promethazine 25 Mg/Ml Syringe IM Q6H PRN PRN NAUSEA/VOMITING Protocol Senna/Docusate Sodium 2 tablet 09/29/23 10:00 Senna/Docusate Sodium 1 Tablet PO BID [facility] Sodium Chloride 5 - 15 ml 09/29/23 07:30 0.9% Nacl Peripheral Flush Adult/Peds IV UD PRN SALINE FLUSH PFSH Medical History History of stress test Wears contact lenses Post-menopausal Depression Alcohol use Thyroid disease Arthritis Low iron Former smoker Pulmonary hypertension CPAP (continuous positive airway pressure) dependence History of pain when walking History of echocardiogram Cardiology follow-up encounter History of atrial fibrillation Preoperative cardiovascular examination senior living current use of anticoagulant Paroxysmal atrial fibrillation History of cardioversion AIRAM on CPAP Mixed hyperlipidemia Essential hypertension Home Medications ?Medication ?Instructions ?Recorded ?Last Taken ?Type apixaban 5 mg tablet (Eliquis) 5 mg PO BID Pt wants to stop 03/16/20 09/26/23 Rx Warfarin, go back on Eliquis #60 tabs hydrochlorothiazide 12.5 mg tablet 12.5 mg PO DAILY BP 06/14/20 09/28/23 History levothyroxine 50 mcg tablet 50 mcg PO DAILY THYROID 06/14/20 09/29/23 History losartan 100 mg tablet 100 mg PO DAILY BP 06/14/20 09/29/23 History cholecalciferol (vitamin D3) 250 250 mcg PO DAILY SUPPLEMENT 04/12/22 09/28/23 History mcg (10,000 unit) tablet metoprolol tartrate 50 mg tablet 50 mg PO BID HEART 05/09/23 09/29/23 History diltiazem HCl 120 mg 120 mg PO DAILY #90 caps 06/23/23 09/29/23 Rx capsule,extended release 24 hr Allergy/AdvReac Type Severity Reaction Status Date / Time Sulfa (Sulfonamide Allergy Unknown Big rash Verified 09/29/23 06:26 Antibiotics) Family History Mother Hypertension Father Pulmonary hypertension Surgical History History of cardiac catheterization History of right knee joint replacement History of tonsillectomy Social History Smoking Status: Former smoker Tobacco: How many years used: 12 how long ago did patient quit smokinmonths second hand exposure: No alcohol intake: current details: occasional substance use type: does not use caffeine: Yes Type: coffee Number of servings: 2 Review of Systems (Anesthesia) ROS Narrative System reviewed and no additional complaints, except as documented.
--- NOTE | 2023-09-29 07:30 | KNEE_PTH ---
PATIENT: YORDY HAN LOC: MS3 U#:[id number] AGE/SX: 67/F ROOM: [facility] [place] RE09/29/[address]: Dr. Siddhartha Hope MD : 1955 BED: 1 DIS: 09/30/2023 SPEC #: [id number] RECD: 09/29/23 17:08 STATUS: MONICA GRAVES #: [id number] TOAN: 09/29/23 07:[address]: Siddhartha Hope DEPT: SURGICAL PATHOLOGY RECD BY: Amy Scherer ENTERED: 09/30/23 10:40 SP TYPE: TOTAL KNEE OTHR DR: MD Dr. Luis Miguel Danielle Chi, MD Tissues: Knee, NOS Procedures: Decalcification bone/plaque Surgery Specimen Level IV HEADER OPERATION: Total knee replacement robotic arm assist PRE-OP DIAGNOSIS: Severe left knee osteoarthritis with varus deformity TISSUE SUBMITTED: Bone and soft knee left knee MICROSCOPIC DIAGNOSIS Bone and soft tissue, left knee, total knee replacement/resection: Pieces of bone with degenerative osteoarthritic changes. Fibroadipose tissue, fibroconnective tissue and reactive synovial tissue. JARED: 10/02/2023 MICROSCOPIC DESCRIPTION Slides are reviewed. GROSS DESCRIPTION Received is one container designated bone and soft tissue left knee. The specimen consists of multiple fragments of vazquez-yellow bone measuring in aggregate 11.0 x 8.0 x 3.5 cm. Also in the specimen container are multiple fragments of yellow-white soft tissue measuring in aggregate 8.0 x 8.0 x 3.0 cm. A number of bony fragments contain articular surfaces consistent with tibial plateau and femoral condyle and displaying prominent osteophyte formation, eburnation and bone erosion. Front Office Secretary sections are submitted in two cassettes as follows: 1 - soft tissue, 2 - bone after decalcification. / JARED/ 09/30/2023 TC:5 CPT: 17530, 66555
--- NOTE | 2023-09-29 08:34 | OP.PCM_ITS ---
Report of Operation Date of Procedure: 09/29/23 Pre-Operative Diagnosis: Left knee primary osteoarthritis Post-Operative Diagnosis: Left knee primary osteoarthritis Surgery/Procedure Performed:: Left knee minimally invasive robotic assisted total knee replacement Description of Surgical Findings:: Stable knee with good patella tracking Surgeon: Siddhartha Hope historian research assistant: Chidi Johns Type of Anesthesia: General Anesthesiologist: Flip Ellis Special Medications: 2 g Ancef, 1 g TXA at incision, 1 g TXA closure, 10 mg Decadron, joint cocktail (5 mg Duramorph, 30 mL of 0.5% Ropivicaine, 1000 units of epinephrine, 30 mg of Toradol) Specimen's removed: Bony cuts Estimated Blood Loss (mL): 100 Fluids Replaced: 1000 Description of Procedure: Implants used: 1. [place]coe size4 triathlon cruciate retaining distal femoral press-fit component 2. [place] size 4 press-fit tritanium tibial baseplate 3. Niyah X3 10 MM CS polyethylene 4. [place]coe X3 32 MM asymmetric patella Brief history operative indications: 67-year-old F with history of left knee osteoarthritis with radiographic findings with loss of joint space, osteophyte formation and subchondral sclerosis. Failed conservative measures as mentioned in the H&P. Discussion of total knee arthroplasty as well as risk and benefits were discussed the patient including but not limited to blood loss, DVTs, PEs, neurovascular damage, gene ral risk of anesthesia including loss of life, and stiffness or instability were discussed with patient. Patient demonstrated understanding and was able to sign informed consent. Procedure: On the date of procedure patient's left lower extremity was marked in the preoperative area. The patient was then taken back to the operating room where the patient was placed on the table in the supine position. All bony prominences were identified a well-padded. Anesthesia assumed control of the C-spine and airway and remained controlled throughout the remainder of the procedure. A tourniquet was placed on the left upper thigh and the leg was prepped in a sterile fashion. The surgeon then scrubbed at this time .Upon reentering the room left lower extremity was draped in a standard orthopedic fashion. A timeout was then called and everyone agreed upon the side, the site, the procedure to be performed, patient's identity and antibiotics given. Esmarch bandage was used to exsanguinate the extremity and the tourniquet was placed up to 250 mmHg with the knee in flexion. A midline skin incision was made and sharp dissection was taken down through skin subcutaneous tissue and fat. The standard medial parapatellar incision was made and the patella was subluxed laterally. An Appropriate deep MCL release was done and the fat pad was resected. Our attention was then directed to the patella. The patella was everted and a flat resection was made. The knee was then flexed up in 2 femoral pins were placed inside the incision and 2 tibial pins were placed outside the incision in the medial tibia b icortically. Once this was completed the 2 checkpoints in the femur and tibia were placed. Knee was then flexed up and the bony landmarks were registered. Once this was completed knee was taken through range of motion and manually stressed allowing us to a plan for an appropriate tibial cut. The robotic arm was brought into the field sterilely and checkpoint and saw were registered. Based on the patient's deformity the tibial cut was made IN 2 DEGREES OF VARUS. At this time the tensioner was then placed in the joint and ligament tension was checked at 90 degrees and full extension. Based on the patient's ligamentous tension appropriate adjustments were made to the operative plan and ligament releases were done. Once we were happy with our operative plan with balanced flexion and extension gaps our attention was directed to the femur. The robot was brought into the field sterilely and registered. Posterior condylar cuts, anterior chamfer cuts and anterior cuts were appropriately made for a size 4 femur. When these were completed the saws were switched out in the distal femoral and posterior chamfer cuts were made. Protecting the soft tissue throughout this time. A size 4 tibial base plate was selected. the knee was flexed to 90 degrees and the soft tissues and posterior osteophytes were removed from the joint. 40 cc of the periarticular injection was injected into the posterior medial corner of the joint. The appropriate trials were then placed on the femur and tibia. A trial polyethylene was trialed to ensure proper balancing and stability of the knee. The appropriate tibial internal rotation was then marked with a bovie. Our attention was then directed to the patella. The lug holes were drilled and the patella trial was placed. Patellar tracking was checked and deemed appropriate. Once we were happy lug holes were drilled for the femur and trial components were removed. the tibia was subluxed and pinned into place and the keel was punched and drilled appropriately. Final components were verified and opened, and cement was mixed in a vacuum. Niyah Simplex cement was used. The wound was copiously irrigated with normal saline. When the cement was ready the components were IMPACTED into place starting with the tibia, femur and finally cementing the patella. The trial poly component was placed and the knee was placed in full extension. All excess cement was removed in the process. Once the cement had cured the tracking, alignment and balance were verified and a size [] polyethylene component was placed. Once the final components were placed a 3-minute dilute Betadine lavage was performed followed by an Irrisept lavage was performed and the wound was copiously irrigated with normal saline solution and the periarticular injection was given. The wound was closed in a layer yen fashion using #1 vicryl interrupted sutures for the arthrotomy, 2-0 interrupted Vicryl suture for the subcuticular layer and triston for final skin closure. A sterile compressive dressing was then placed. The patient was then awakened from anesthesia, transferred to the [facility] and transferred to the PACU for recovery. Post op plan DVT ppx: RESUME ELIQUIS, thigh high compression stockings Follow up: in office in 2 weeks for wound check PT: to start POD #0 at hospital, outpatient PT should be arranged. DOXYCYCLINE 100 MG PO BID: BMI My physician catering administrative assistant was a vital part of this case. He was important in appropriate retraction during the case, and protection of soft tissues during bony cuts. His intimate knowledge of the case and my steps aided in safe and expedient completion of the procedure as well as appropriate position of the leg during the case. He was also vital in assisting with closure under my direct supervision. Due to the complexity of this case robotic arm was used to assist in the surgery to improve accuracy and clinical outcomes. Complications No intraoperative complications Admit VTE Documentation VTE Present on Admission: No VTE Mechan Device Prophylaxis: SCD's and Thigh High BUTCH Hose VTE Pharm Prophylaxis ordered?: Yes
--- NOTE | 2023-09-29 09:30 | RAD_ITS ---
STUDY: X-RAY - LEFT KNEE REASON FOR EXAM: Female, 67 years old. Post op -- AP and Lateral xray of operative knee in PACU TECHNIQUE: 2 view(s) of the knee. COMPARISON: None. FINDINGS: Normal visualized distal femur. Normal visualized proximal tibia and fibula. Normal proximal tibiofibular articulation. The patient is status post total knee replacement. There is good alignment. Postoperative soft tissue changes. RAD/Knee 1 or 2 Views IMPRESSION: Status post total knee replacement. There is good alignment. Postoperative soft tissue changes. Electronically Signed: Ryley Hahn MD at 10:39 EDT ,
--- NOTE | 2023-09-29 10:35 | PCM.POST.ANE ---
Anesthesia: Postop Eval I Current Vital Signs Temperature: 97 F Pulse Rate: 131 Blood Pressure: 106/89 Respiratory Rate: 16 Pulse Ox: 94 Oxygen Delivery Method: Room Air Assessment Airway patent: Yes Spontaneous unlabored respirations: Yes Mental status: Awake and Calm nausea: No Vomiting: No Anesthesia Complication: No Fluid Hydration Crystalloid volume administer (ml): 1,000 Total IV fluid infused: 1,000 Progress Note Anesthesia document: Postop Eval 1 completed: Yes
[2023-09-29] MEDS: Lactated Ringers 1,000 ML 125 ML IV (10:44)
[2023-09-29] MEDS: oxyCODONE 5 MG Tablet PO (12:33)
[2023-09-29] MEDS: Cefazolin 1 GM/50 ML BAG IV ×2 (15:13→22:02)
[2023-09-29] MEDS: hydroCHLOROthiazide 12.5mg 12.5 MG PO (16:09)
--- NOTE | 2023-09-29 19:36 | PCM.PN.HOSP ---
Reason for Visit Reason for Visit: Diagnoses Encounter for other preprocedural examination (09/29/23) Subjective Subjective Patient was seen and examined today at request of orthopedic surgery, she underwent a left knee robotic replacement today for osteoarthritis. Current chronic medical problems include osteoarthritis, depression, hypertension, obstructive sleep apnea, and chronic A-fib. At this time she voices no complaints to this examiner. Objective Data Objective Data Vital Signs: Vital Signs Temp Pulse Resp BP Pulse Ox O2 Del Method O2 Flow Rate 97.6 F L 120 H 16 127/84 H 95 Room Air 4 09/29/23 15:30 09/29/23 15:30 09/29/23 15:30 09/29/23 15:30 09/29/23 15:30 09/29/23 16:45 09/29/23 10:29 Oxygen Flow Rate (L/min) 4 Oxygen Delivery Method Room Air Weight: 103.3 kg Body Mass Index (BMI) 40.3 Intake & Output: Intake and Output for Last 24 Hours 09/27/23 09/28/23 09/29/23 23:59 23:59 23:59 Intake Total 3276.92 / 3276.92 Output Total 100 / 100 Balance 3176.92 / 3176.92 Lab / Micro Data Labs: Laboratory Results - last 24 hr 09/29/23 06:11: POC Glucose 138 H Radiography Diagnostic Testing: Radiology Impression Knee X-Ray 09/29/23 09:30 IMPRESSION: Status post total knee replacement. There is good alignment. Postoperative soft tissue changes. Electronically Signed: Ryley Hahn MD at 10:39 EDT , Physical Exam Const alert, oriented x3, no apparent distress and healthy appearing Constitutional Narrative: Patient is morbidly obese General Appearance: cooperative, well kempt and well developed Orientation / Consciousness: awake, oriented to person, oriented to place and oriented to time HEENT normocephalic, head/scalp atraumatic and moist oral mucous membranes Eyes PERRL, EOMs intact bilaterally and conjunctivae normal Neck supple, no JVD, thyroid normal and no carotid bruits General: trachea midline Resp normal respiratory effort, no retractions, no use of accessory muscles and clear to auscultation bilaterally Auscultation: Negative for rales, rhonchi or wheezes Cardio S1 normal heart sound, S2 normal heart sound, no murmurs, no rub and no gallops Cardio Narrative: Heart rate and rhythm is irregular GI normal to inspection, nondistended, normoactive bowel sounds, soft to palpation, non-tender and non-distended Neuro oriented x3, CN's II-XII intact bilaterally, moves all extremities, no focal motor deficits and no sensory deficits noted Sensorium / Orientation: awake and alert Speech: speech normal Psych affect normal Assessment & Plan Assessment/Plan (1) Persistent atrial fibrillation: PLAN: Plan 1. Essential hypertension-patient will remain on her home medications for blood pressure and they will be adjusted as necessary #2 hypothyroidism-patient is on Synthroid #3 permanent atrial fibrillation-patient is on rate limiting medications and Eliquis, the Eliquis will be restarted tomorrow #4 obstructive sleep apnea-patient states she uses CPAP at night at a setting of 10 without oxygen, I will write for this #5 osteoarthritis-postop day 0 left knee robotic replacement-patient will be seen by PT and OT, orthopedic surgery is participating in her care Total clinical time spent by myself addressing the patient's medical issues, reviewing all of her medications, and collaborating with patient's care team: 30 minutes Charges/Coding Visit Charges Office Visits / Consults: 35212 OV L4 Est 30min
[2023-09-29] MEDS: Senna/Docusate Sodium 1 Tablet 2 TABLET PO (21:42)
[2023-09-29] MEDS: Metoprolol Tartrate 50 MG Tablet PO (21:42)
[2023-09-29] MEDS: Doxycycline 100 MG CAPSULE PO (21:42)
--- NOTE | 2023-09-29 22:27 | CPS ---
patient refusing CPAP for tonight
[2023-09-30 02:45] VITALS: BP 145/76; PULSE 89; RESP 16; TEMP 36.7; O2SAT 97
[2023-09-30 06:24] VITALS: PULSE 89
[2023-09-30 06:36] VITALS: BP 138/79; PULSE 99; RESP 17; TEMP 36.8; O2SAT 94
[2023-09-30 06:58] LABS: Hematocrit 41.7 % (37-47); Hemoglobin 13.7 g/dL (12.0-15.0); Mean Corp Hgb Conc 32.9 g/dL (32-36); Mean Corpuscular Hgb 30.6 pg (27.0-32.0); Mean Corpuscular Volume 93.1 fL (81-99); Mean Platelet Vol. 10.8 fl (6.2-12.0); Platelet Count 240 K/mm3 (150-450); RBC Distribution Width SD 44.4 fl (35.1-43.9); Red Blood Count 4.48 M/mm3 (4.2-5.4); White Blood Count 12.9 K/mm3 (4.4-11.0)
[2023-09-30] MEDS: Levothyroxine 50 MCG Tablet PO (07:04)
[2023-09-30] MEDS: APIXABAN 5 MG TABLET PO (07:04)
[2023-09-30] MEDS: Acetaminophen 500 MG Tablet 1000 MG PO (07:07)
[2023-09-30 07:11] LABS: Anion Gap 6 (5-15); BUN 16 mg/dL (7-18); BUN/Creat Ratio 17.7 RATIO (10-20); Calcium,Total 9.5 mg/dL (8.5-10.1); Chloride 106 mmol/L (98-107); Creatinine, Serum 0.91 mg/dL (0.55-1.02); EST Glomerular Filtration Rate 66 mL/min (>60); Est Glom Filt Rate - Afr Amer 80 mL/min (>60); Estimated Creatinine Clearance 68.91 ml/min; Glucose 129 mg/dL (74-106); Potassium 4.8 mmol/L (3.5-5.1); Sodium Level 139 mmol/L (136-145)
--- NOTE | 2023-09-30 07:47 | PN.ORTHO_ITS ---
Subjective Subjective The patient was sitting in bed upon examination. Patient denies any chest pain, shortness of breath, dizziness, lightheadedness, nausea or vomiting, or calf pain. Pain is controlled on medications. No adverse overnight events. Patient states she is doing well this morning. The block is still working. She has minimal pain. Patient was using nasal oxygen overnight as she did not bring her CPAP into the hospital. Patient states she does wish to go home today. She has history of chronic atrial fibrillation and will be resuming her Eliquis today. Objective Data Objective Data Vital Signs: Vital Signs Temp Pulse Resp BP Pulse Ox O2 Del Method O2 Flow Rate 98.3 F 99 17 138/79 H 94 Room Air 2 09/30/23 06:36 09/30/23 06:36 09/30/23 06:36 09/30/23 06:36 09/30/23 06:36 09/30/23 06:36 09/29/23 22:45 Oxygen Flow Rate (L/min) 2 Oxygen Delivery Method Room Air Weight: 103.3 kg Body Mass Index (BMI) 40.3 Intake & Output: Intake and Output for Last 24 Hours 09/28/23 09/29/23 09/30/23 23:59 23:59 23:59 Intake Total 3326.92 / 3326.92 700 / 700 Output Total 100 / 100 Balance 3226.92 / 3226.92 700 / 700 Lab / Micro Data 09/30/23 05:52 09/30/23 05:52 Labs: Laboratory Results - last 24 hr 09/30/23 05:52: WBC 12.9 H, RBC 4.48, Hgb 13.7, Hct 41.7, MCV 93.1, MCH 30.6, MCHC 32.9, RDW Std Deviation 44.4 H, RDW Coeff of Cesar 13.0, Plt Count 240, MPV 10.8, Sodium 139, Potassium 4.8, Chloride 106, Carbon Dioxide 27.0, Anion Gap 6, BUN 16, Creatinine 0.91, Estim Creat Clear Calc 68.91, Est GFR (MDRD) Af Amer 80, Est GFR (MDRD) Non-Af 66, BUN/Creatinine Ratio 17.7, Glucose 129 H, Calcium 9.5 Radiography Diagnostic Testing: Radiology Impression Knee X-Ray 09/29/23 09:30 IMPRESSION: Status post total knee replacement. There is good alignment. Postoperative soft tissue changes. Electronically Signed: Ryley Hahn MD at 10:39 EDT , Physical Exam Narrative Vital signs stable and afebrile. Patient was on nasal oxygen overnight due to sleep apnea. She does not have her CPAP in the hospital SCDs and BUTCH hose are in place bilaterally. Patient is able to plantarflex and dorsiflex actively. Sensation is intact to light touch to saphenous, sural, superficial and deep peroneal, and tibial distribution. Both dressings have mild drainage but still appropriate and does not need any change. Negative Homans bilaterally, negative signs and symptoms of DVT. Const alert, oriented x3 and no apparent distress Assessment & Plan Assessment/Plan (1) Status post total left knee replacement: PLAN: 1. S/P left robotic assisted total knee arthroplasty POD #1 2. Continue Pain Medications: Tylenol and oxycodone 3. DVT Prophylaxis: Patient is currently resuming her Eliquis today which she takes for chronic atrial fibrillation. This will cover her for DVT prophylaxis. She will continue with BUTCH hose for 2 weeks postoperatively. 4. PT/OT: Weightbearing as tolerated with walker 5. H & H: 13.7/41.7, asymptomatic. Labs have been reviewed and stable 6. Reactive leukocytosis: 12.9, Afebrile. Patient did receive Decadron intraoperatively. No clinical signs of infection. 7. Currently on doxycycline for 2 weeks postoperatively due to elevated BMI greater than 40.0. I discussed with the patient potential side effects of doxycycline including sensitivity to the sunlight and increased risk of skin burn. Recommend patient take appropriate precautions. Also recommend patient to take probiotic while on the antibiotic. Patient voiced understanding agreement. 8. Encouraged Incentive Spirometry: Patient will resume her CPAP at nighttime when home. 9. Patient is aware of postoperative constipation that can occur from 1-3 days postoperatively. Will continue with senna 2 tablets twice daily until first bowel movement. Patient was advised if not having a bowel movement after day 3 she is to contact orthopedics so appropriate change can be made. Patient voiced understanding. 10. Continue postoperative medical treatment per medicine 11. Disposition: Plan will be for discharge home today as long as patient remains medically stable, tolerates therapy, and pain is adequately controlled. Patient would like her prescriptions E scribed to [facility] in [facility]. She will follow-up per postoperative instructions. She does have outpatient physical therapy established. On discharge she will contact our office with any concerns or questions. I have reviewed the [place] Automated Rx Reporting System (OARRS) report for this patient for refill pattern and other prescriber involvement as part of the appropriate surveillance for the provision of acute and chronic controlled medications. The report was requested and reviewed on the date of this entry and was considered in the prescribing process. This dictation was created using voice recognition software. Phonetic and/or grammatical errors may exist.
--- NOTE | 2023-09-30 07:51 | DCINST_ITS ---
Discharge Instructions Diet Discharge Diet: No restrictions Activity Discharge Activity: May Not Drive (May not drive until you can walk 100 feet with the use of a cane and off all narcotics) May shower in (days): 1 (Please turn dressing away from water. Okay to get wet as long as dressing is intact to skin.) Ice area for (Minutes): 20 (Every 1-2 hours while awake. Please place barrier between the skin and ice pack.) Weight Bearing Status: Weight bearing as tolerated Keep extremity elevated above heart level: Operative Extremity Dressing / Incision Call your doctor if your incision/area has: Continuous Slow Oozing, Sudden Increased Bleeding, Increased Pain/ Swelling, Increased Redness and Foul Smelling Discharge Call your doctor if you observe: Fever of 101 or Higher, Coldness, Increased Pain, Numbness or Tingling, Change in Color, Shortness of breath, Chest pain, Calf discomfort and Uncontrolled pain Remove Dressing in: 4 days (Okay to remove dressing on October 04, 2023) Additional Dressing/Incision Instructions:: Follow [facility] Post-op Instructions. Once postoperative dressing has been removed only use gentle soap and water over the incision. Do not use any ointments, Neosporin, salves, alcohol pads over the incision for 6 weeks postoperatively. Do not submerge underwater for 6 weeks postoperatively. Continue with BUTCH hose/elastic stockings for 2 weeks postoperatively. May remove at nighttime but needs to be placed back on the leg during the day. Do NOT use alcohol with narcotic pain medication. Do NOT make important decisions while taking narcotic medication. If you have problems with taking your medication (rash, itching, nausea, etc.) call the office at once. Follow Up Care Test Results: Test results from this visit will be discussed in further detail at your follow- up appointment, if applicable. Discharge Plan Admission Admit Date/Time: 09/29/23 06:52 Attending Provider: Siddhartha Hope Primary Care Provider: Luis Miguel Aranda Chi Consulting Providers: Nadege Patrick Discharge Orders/Prescriptions Prescriptions: New acetaminophen 500 mg Tablet 1,000 mg PO TID 14 Days Qty: 84 0RF Rx Instructions: Do not take more than 3000 mg Tylenol in a 24-hour period. doxycycline monohydrate 100 mg Capsule 100 mg PO BID 14 Days Qty: 28 0RF famotidine 20 mg Tablet 20 mg PO DAILY 14 Days Qty: 14 0RF oxycodone 5 mg Tablet 5 - 10 mg PO Q4H PRN PRN (Reason: Pain Score 4-10) 7 Days Qty: 42 0RF sennosides-docusate sodium [Stimulant Laxative Plus] 8.6-50 mg Tablet 2 tab PO BID 3 Days Qty: 12 0RF Rx Instructions: Take until first bowel movement, then as needed Continued hydrochlorothiazide 12.5 mg tablet 12.5 mg PO DAILY levothyroxine 50 mcg tablet 50 mcg PO DAILY losartan 100 mg tablet 100 mg PO DAILY cholecalciferol (vitamin D3) 250 mcg (10,000 unit) tablet 250 mcg PO DAILY metoprolol tartrate 50 mg tablet 50 mg PO BID Eliquis 5 mg tablet 5 mg PO BID Qty: 60 11RF diltiazem HCl 120 mg capsule,extended release 24hr 120 mg PO DAILY Qty: 90 3RF Referrals / Follow Up: Physical,Therapy [Other] - 10/02/23 3:30 pm Luis Miguel Aranda Chi, MD [Primary Care Provider[facility] [Med Staff - [facility] Practice Prof] - 10/10/23 10:00 am Disposition Disposition (needs filled in before D/C Order can be placed): Home, Self Care
[2023-09-30 08:15] VITALS: BP 133/71; PULSE 117; RESP 18; TEMP 36.5; O2SAT 95
[2023-09-30 08:19] VITALS: PULSE 117
[2023-09-30] MEDS: hydroCHLOROthiazide 12.5mg 12.5 MG PO (08:19)
[2023-09-30] MEDS: Doxycycline 100 MG CAPSULE PO (08:19)
[2023-09-30] MEDS: Losartan Potassium 100 MG Tablet PO (08:19)
[2023-09-30] MEDS: Metoprolol Tartrate 50 MG Tablet PO (08:19)
[2023-09-30] MEDS: Famotidine 20 MG Tablet PO (08:19)
[2023-09-30] MEDS: Cholecalciferol (Vit D3) 125 MCG CAPSULE (5,000 UNITS) 250 MCG PO (08:20)
[2023-09-30] MEDS: Senna/Docusate Sodium 1 Tablet 2 TABLET PO (08:20)
[2023-09-30] MEDS: dilTIAZem CD 120 MG Capsule PO (08:20)
--- NOTE | 2023-09-30 10:25 | CASEMGMT ---
HOLGER HERRERA Assessment: Face to Face with pt for initial transition planning/care coordination assessment. HOLGER HERRERA introduced self and role at [facility], pt voices understanding and consents to assessment. Pt is A&O x4 and answers all questions appropriately at this time. Pt is sitting up in bed in no distress. Care providers, pharmacy, and demographics verified/updated. Strata: 1 Admitting Dx: Total Knee PCP: Manoj Specialists: Jayy, Orthopedics; Shanna, Jewel Oliving Machine Operator; Joseph, Polmonologist. Preferred Pharmacy: [facility] Insurance: [employer] [facility] Prescription Benefit: yes LNOK: Friend, Brother Living Arrangements: Pt lives alone in a 1 level with no stairs to enter. ADLs: Pt reports I with ADLS and IADLS. Transportation: Pt drives self and denies concerns with transportation. DME: Wheeled Walker, Cane, Bedside Commode, Shower Chair. HHC/SNF: Denies Hx of. Pt states family will be staying with her for next two weeks to help assist and take her to appointments. Pt states no concerns with going home at time of dc. Pt states no further concerns/needs. CM to follow. Advised pt to ask CM if any further question/concerns/needs arise, voices understanding. Pt Goal: Home Plan: Home with outpatient PT to start 09/30. David WREN CM
[2023-09-30 11:20] VITALS: BP 110/70; PULSE 102; RESP 18; TEMP 36.2; O2SAT 95
--- NOTE | 2023-09-30 14:16 | PN_ITS ---
Subjective Subjective Patient seen and examined. She feels very well and has no complaints. Pain is well-controlled. Review of symptoms otherwise negative. She is for discharge per orthopedic surgery today. Objective Data Objective Data Vital Signs: Vital Signs Temp Pulse Resp BP Pulse Ox O2 Del Method O2 Flow Rate 97.2 F L 102 H 18 110/70 95 Room Air 2 09/30/23 11:20 09/30/23 11:20 09/30/23 11:20 09/30/23 11:20 09/30/23 11:20 09/30/23 11:20 09/29/23 22:45 Oxygen Flow Rate (L/min) 2 Oxygen Delivery Method Room Air Weight: 227 lb 11.8 oz Body Mass Index (BMI) 40.3 Intake & Output: Intake and Output for Last 24 Hours 09/28/23 09/29/23 09/30/23 23:59 23:59 23:59 Intake Total 3326.92 / 3326.92 700 / 700 Output Total 100 / 100 Balance 3226.92 / 3226.92 700 / 700 Lab / Micro Data 09/30/23 05:52 09/30/23 05:52 Labs: Laboratory Results - last 24 hr 09/30/23 05:52: WBC 12.9 H, RBC 4.48, Hgb 13.7, Hct 41.7, MCV 93.1, MCH 30.6, MCHC 32.9, RDW Std Deviation 44.4 H, RDW Coeff of Cesar 13.0, Plt Count 240, MPV 10.8, Sodium 139, Potassium 4.8, Chloride 106, Carbon Dioxide 27.0, Anion Gap 6, BUN 16, Creatinine 0.91, Estim Creat Clear Calc 68.91, Est GFR (MDRD) Af Amer 80, Est GFR (MDRD) Non-Af 66, BUN/Creatinine Ratio 17.7, Glucose 129 H, Calcium 9.5 Physical Exam Const alert, oriented x3 and no apparent distress Constitutional Narrative: obese General Appearance: cooperative HEENT normocephalic, head/scalp atraumatic, moist oral mucous membranes and oropharynx normal Eyes PERRL and EOMs intact bilaterally Neck supple Lymph Lymphatic: no lymphadenopathy noted Resp normal respiratory effort, normal air movement and clear to auscultation bilaterally Cardio regular rate, regular rhythm, S1 normal heart sound, S2 normal heart sound and no murmurs GI normal to inspection, nondistended, normoactive bowel sounds, soft to palpation, non-tender and non-distended Extremity normal capillary refill and no clubbing, cyanosis or edema Extremity Narrative: intact dressing on the left knee General Extremity: no tenderness to palpation of joints or extremities Neuro CN's II-XII intact bilaterally, no focal motor deficits, no sensory deficits noted and deep tendon reflexes 2+ bilaterally Motor Exam: general weakness Psych thought process normal, cooperative and affect normal Appearance: appropriate Assessment & Plan Assessment/Plan (1) Status post total left knee replacement: PLAN: Plan #Osteoarthritis s/p left total knee replacement * tody is POD 1 * pain is well controlled * On Tylenol, oxycodone and IV morphine as needed for pain. * PT OT on board. Fall precautions. Incentive spirometry. * #Benign essential hypertension: on losartan, HCTZ and metoprolol # Hypothyroidism: #Atrial fibrillation: Currently rate controlled. On Eliquis. #AIRAM: On CPAP nightly DVT prophylaxis: As per orthopedics. On eliquis Disposition: For discharge today per primary service orthopedics. Patient okay for discharge from hospitalist standpoint.. Charges/Coding Visit Charges Inpatient E&M: 66106 Subs Hosp L2
== END 2023-09-30 11:30 | disposition home or self-care (01) ==
LOC: SDC 15:21 → MS3 15:21
PROVIDERS: Admitting Provider Specialist; PCP Family Medicine Geriatric Medicine; Referring Provider Specialist; Visit Provider Specialist
PROC: 0SRD0JZ Replacement of Left Knee Joint with Synthetic Substitute, Open Approach (ICD-10-PCS; CPT 27447; principal; 2023-09-29 07:00)
DX: M17.12 Unilateral primary osteoarthritis, left knee (principal); I48.19 Other persistent atrial fibrillation; E66.01 Morbid (severe) obesity due to excess calories; Z68.41 Body mass index [BMI] 40.0-44.9, adult; I10 Essential (primary) hypertension; Z87.891 Personal history of nicotine dependence; Z79.01 Long term (current) use of anticoagulants; F32.A Depression, unspecified; G47.33 Obstructive sleep apnea (adult) (pediatric); E03.9 Hypothyroidism, unspecified; Z79.899 Other long term (current) drug therapy; Z79.890 Hormone replacement therapy
CPT/HCPCS: 27447; S2900; 01402; 64447; 36415; 73560; 80048; 82962; 85027; 88305; 88311; 94668; 96361; 96365; 96366; 97110; 97162; 97165; 97530; 97535; 99221; 99252; C1776; J7120; G0378; G0463

== ENCOUNTER → 2024-07-12 | Outpatient (CLI) | payer MEDICARE, SELFPAY | END | disposition home or self-care (01) | LOC: PSN 11:38 | PROVIDERS: PCP Family Medicine; Referring Provider Physician Assistant Medical; Visit Provider Physician Assistant Medical | DX: I48.91 Unspecified atrial fibrillation (principal) | CPT/HCPCS: 93225; 93226 ==

== ENCOUNTER → 2024-07-30 | Outpatient (CLI) | payer MEDICARE, SELFPAY ==
[2024-07-30 10:23] LABS: Absolute Lymphocyte Count 2.25 X10^3/uL (0.83-4.51); Absolute Neutrophil Count 4.2 X10^3/uL (2.0-7.7); Basophil# 0.09 X10^3/uL; Basophil% 1.2 % (0-1); Eosinophils% 2.7 % (0-5); Hematocrit 46.3 % (37-47); Hemoglobin 15.6 g/dL (12.0-15.0); Lymphocyte # 2.25 X10^3/ul (0.83-4.51); Lymphocyte % 30.8 % (19-41); Mean Corp Hgb Conc 33.7 g/dL (32-36); Mean Corpuscular Hgb 30.5 pg (27.0-32.0); Mean Corpuscular Volume 90.6 fL (81-99); Mean Platelet Vol. 10.8 fl (6.2-12.0); Monocyte# 0.51 X10^3/uL; NRBC Flagged by Analyzer 0 % (0-5); Neutrophil # 4.23 X10^3/uL (2.7-7.7); Platelet Count 263 K/mm3 (150-450); RBC Distribution Width CV 12.8 % (11.6-14.6); RBC Distribution Width SD 42.7 fl (35.1-43.9); Red Blood Count 5.11 M/mm3 (4.2-5.4); White Blood Count 7.3 K/mm3 (4.4-11.0)
[2024-07-30 11:05] LABS: ALB/GLOB Ratio 1.5 RATIO (0.9-2.4); AST(SGOT) 18 U/L (<=31); Alanine Aminotransfer ALT/SGPT 12 U/L (<=34); Albumin, Serum 4.2 g/dL (3.4-4.8); Alkaline Phosphatase 69 U/L (35-104); Anion Gap 13 (5-15); BUN 21 mg/dL (4-19); BUN/Creat Ratio 17.7 RATIO (10-20); Calcium,Total 9.4 mg/dL (7.6-11.0); Carbon Dioxide 23.4 mmol/L (21.0-32.0); Chloride 102 mmol/L (98-108); Cholesterol 222 mg/dL (<=200); Creatinine, Serum 1.19 mg/dL (0.70-1.20); EST Glomerular Filtration Rate 50 (>60); Globulin 2.9 g/dL (2.2-4.2); Glucose 110 mg/dL (70-99); High Density Lipoprotein 46 mg/dL; Low Density Lipoprotein Calc. 143 mg/dL; Potassium 4.3 mmol/L (3.3-5.1); Protein, Total 7.1 g/dL (5.9-8.4); Sodium Level 138 mmol/L (133-145); Total Bilirubin 0.53 mg/dL (0.00-1.30); Triglycerides 167 mg/dL; Very Low Density Lipoprotein 33 mg/dL (5-40); cholesterol:hdl ratio screen 4.82
== END | disposition home or self-care (01) ==
LOC: MFPLAB 09:29
PROVIDERS: PCP Family Medicine; Referring Provider Family Medicine; Visit Provider Family Medicine
DX: I48.91 Unspecified atrial fibrillation (principal)
CPT/HCPCS: 36415; 80053; 80061; 84443; 85025

== ENCOUNTER → 2024-08-24 | Outpatient (CLI) | payer MEDICARE, SELFPAY ==
--- NOTE | 2024-08-24 16:13 | BI_ITS ---
EXAM: SCRN MAMM (CAD)W/TONE BILAT DATE: 08/24/2024 CLINICAL HISTORY: F, Age 68 y/o , SCREENING TECHNIQUE: SCRN MAMM (CAD)W/TONE BILAT COMPARISON: Prior exam(s) were compared FINDINGS: TISSUE DENSITY: The breasts are heterogeneously dense, which may obscure small masses. Bilateral Breast Mammographic Findings: No suspicious masses, calcifications or other abnormalities are identified. BI/SCRN MAMM (CAD)W/TONE BILAT IMPRESSION: No mammographic evidence of malignancy in either breast OVERALL FINAL ASSESSMENT BI-RADS 1: NEGATIVE. RECOMMEND ANNUAL MAMMOGRAPHIC SCREENING. RECOMMENDATION: Routine annual follow-up in 1 Year A letter with findings and recommendations will be mailed to the patient. Reading Location: [id number]
--- NOTE | 2024-08-24 16:15 | BD_ITS ---
PROCEDURE: DEXA BONE DENSITY STUDY 08/24/2024 REASON FOR EXAM: F, age 68 y/o . TECHNIQUE: DEXA BONE DENSITY STUDY COMPARISON: DEXA scan on 07/19/2021 FINDINGS: BMD and T-SCORES Lumbar spine: 1.095 g/cm2, T-score -0.1 Levels: L1 through L2 Change from prior: Statistically significant BMD decrease of 8.4%. Left femoral neck: 0.668 g/cm2, T-score -1.6 Femoral neck comparison data not recommended for monitoring change. Prior T-score -1.8 Left total hip: 0.908 g/cm2, T-score -0.3 Change from prior: Statistically significant BMD decrease of 8.2%. Right femoral neck: 0.722 g/cm2, T-score -1.1 Femoral neck comparison data not recommended for monitoring change. Prior T-score -0.9 Right total hip: 0.959 g/cm2, T-score 0.1 Change from prior: No significant change in BMD. The World Health Organization has defined the following categories based on bone density: Normal bone density: T-score equal to or greater than -1.0 Osteopenia: T-score between -1.0 and -2.5 Osteoporosis: T-score equal to or less than -2.5 FRAX (or Comparable) Fracture Risk Assessment: 10 Year Probability of Fracture: Major Osteoporotic Fracture: 15% Hip Fracture: 2.0% (Note: FRAX is not to be reported in setting of normal range bone density, osteoporosis on DEXA, known history of osteoporosis, prior osteoporotic hip or vertebral fracture, or for any patient undergoing pharmacological treatment for bone loss.) The National Osteoporosis Foundation (NOF) recommends pharmacological treatment for patients with a FRAX 10-year risk of 3% or higher for a hip fracture, or 20% or higher for a major osteoporotic fracture, to prevent osteoporosis and reduce fracture risk. The patient does not meet the pharmacological treatment recommendations for prevention of osteoporosis. BD/Dexa Bone Density Study IMPRESSION: OSTEOPENIA. Reading Location: [id number]
== END | disposition home or self-care (01) ==
LOC: OPBD 16:11
PROVIDERS: PCP Family Medicine; Referring Provider Family Medicine; Visit Provider Family Medicine
DX: Z13.820 Encounter for screening for osteoporosis (principal); Z78.0 Asymptomatic menopausal state; Z12.31 Encounter for screening mammogram for malignant neoplasm of breast
CPT/HCPCS: 77063; 77067; 77080